=== PATIENT | male | born 1930 | race African-American/Black ===

== ENCOUNTER 2017-05-14 12:16 | Inpatient (IN) | payer MEDICARE ==
[2017-05-14] MEDS ORDERED: Furosemide 40 MG/4 ML VIAL ONE (13:19)
[2017-05-14 14:01] LABS: Band 2 % (5-11); Hematocrit 50.7 % (42.0-52.0); Macrocytosis SLIGHT = 6-15 cells (100X) (0-5/hpf); Mean Platelet Volume 10.6 fL (7.4-10.4); Neutrophil 83 % (42-75); Red Blood Cell (RBC) Count 4.73 mill/uL (4.70-6.10); Target Cells SLIGHT = 2-5 cells (100X) (0-1/hpf); White Blood Cell (WBC) Count 3.8 thou/uL (4.8-10.8)
[2017-05-14 14:10] LABS: ALT (SGPT) 28 U/L (8-55); AST (SGOT) 53 U/L (5-34); Alkaline Phosphatase 65 U/L (40-150); Anion Gap 17 mmol/L (10-20); BUN (Urea Nitrogen) 76 mg/dL (8.4-25.7); Bilirubin, Total 1.7 mg/dL (0.2-1.2); Calc. Creatinine Clearance 0 mL/min (70-130); Calcium 9.9 mg/dL (7.8-10.44); Carbon Dioxide 23 mmol/L (23-31); Chloride 108 mmol/L (98-107); Estimated GFR-MDRD 30; Protein, Total 6.7 g/dL (5.8-8.1)
[2017-05-14 14:13] LABS: Troponin I 0.074 ng/mL (< 0.028)
--- NOTE | 2017-05-14 14:51 | RAD ---
AP VIEW CHEST: HISTORY: Shortness of breath. FINDINGS: AP view chest was obtained on 05/14/17. Comparison is made to previous exam from . AP view chest demonstrates a dual-lead intracardiac pacing device. Bilateral pleural effusions seen . Cardiomegaly is noted. Areas of patchy density are seen in both lung bases compatible with bibas ilar pneumonia or atelectasis. IMPRESSION: 1. Cardiomegaly and bilateral pleural effusions. 2. Patchy bibasilar atelectasis or pneumonia may also be present. POS: [facility]
[2017-05-14 17:10] LABS: Troponin I 0.076 ng/mL (< 0.028)
--- NOTE | 2017-05-14 17:10 | HP ---
PRIMARY CARE PHYSICIAN: Dr. Salvador. REASON FOR ADMISSION: CHF exacerbation. HISTORY OF PRESENT ILLNESS: An 86-year-old -British male with a history of chronic systolic heart failure as well as chronic kidney disease, who presented to emergency room for evaluation of increasing shortness of breath. This patient has most recent echocardiography in 12/2016, which chuck wed EF 15-20%. At the same time, the patient has diffuse hypokinesis, moderately elevated pulmonary artery pressure, moderate pulmonary regurgitation, moderate aortic and tricuspid regurgitation, and severe mitral regurgitation. This patient has several admissions for CHF exacerbation in [facility] with the most recent admission in 02/2017. This patient came to the ER because for the last 2-3 days, he has increasing shortness of breath with increasing bilateral lower extremity edema. Xiomara nt reports that he was having difficulty sleeping because of shortness of breath. He does report or thopnea. He denies any PND. He denies any syncope. He denies any fever or chills. He denies any chest pain. He denies any nausea, vomiting, diaphoresis. He denies any melena or hematochezia. He denies any UTI symptoms. The patient is not able to tell me about weight gain, but he does report that he is feeling more congested. He presented to emergency room, his blood pressure was relatively on lower side. He was saturating 95% on 2 liter oxygen. Routine blood tests in the emergency room showed pulmonary vascular congestion, bilateral pleural ef fusions and chest x-ray. Patient denies any fever or chills. He denies any cough. He denies any s ick exposure. He denies any recent travel. In the emergency room, he had elevated troponin, but looking at his old record. Patient does have c hronically elevated troponin and his BNP was elevated, but looking at his old record, he has chronic ally elevated troponin but at this time more than before. PAST MEDICAL HISTORY: Chronic systolic heart failure with EF 15% to 20% with moderate aortic and tr icuspid regurgitation, and severe mitral regurgitation, chronic kidney disease stage 4, dyslipidemia , hypertension, gastroesophageal reflux disease, history of sick sinus syndrome, degenerative joint disease, medication noncompliance. PAST SURGICAL HISTORY: AICD/pacemaker placement, cardiac catheterization and cholecystectomy. PAST PSYCHIATRIC HISTORY: Reviewed and negative. ALLERGIES: No known drug allergies. SOCIAL HISTORY: Patient currently lives at home with his sister. He ambulates with the help of can e. He denies any tobacco, alcohol or illicit drug abuse. FAMILY HISTORY: No strong family history of premature coronary artery disease, stroke or cancer. REVIEW OF SYSTEMS: The following complete review of systems was negative, unless otherwise mentione d in the HPI or below: CONSTITUTIONAL: Weight loss or gain, ability to conduct usual activities. SKIN: Rash, itching. EYES: Double vision, pain. ENT/MOUTH: Nose bleeding, neck stiffness, pain, tenderness. CARDIOVASCULAR: Palpitations, dyspnea on exertion, orthopnea. RESPIRATORY: Shortness of breath, wheezing, cough, hemoptysis, fever or night sweats. GASTROINTESTINAL: Poor appetite, abdominal pain, heartburn, nausea, vomiting, constipation, or diar tamara. GENITOURINARY: Urgency, frequency, dysuria, nocturia. MUSCULOSKELETAL: Pain, swelling. NEUROLOGIC/PSYCHIATRIC: Anxiety, depression. ALLERGY/IMMUNOLOGIC: Skin rash, bleeding tendency. Please see my HPI for pertinent positives and negative. All other review of systems reviewed and ne gative except as mentioned in the HPI. CURRENT HOME MEDICATIONS: Coreg 6.25 mg twice daily, hydralazine 25 mg t.i.d., pravastatin 20 mg p. o. at bedtime, isosorbide mononitrate 20 mg 3 times daily, Antivert 25 mg as needed, aspirin 81 mg p .o. daily, Lasix 40 mg p.o. daily. ALLERGIES: No known drug allergies. EMERGENCY ROOM COURSE: Patient is given Lasix 40 mg IV. PHYSICAL EXAMINATION: VITAL SIGNS: Currently, blood pressure 116/83, pulse 66, respiratory rate 25, temperature 98.4 and saturation 95% on room air. Weight 68 kilograms. GENERAL: Patient is currently alert, awake, chronically ill, no obvious acute distress. HEAD: Normocephalic, atraumatic. Eyes: Pupils round, reactive to light. Extraocular muscles inta ct. ENT: Oropharynx within normal limits. Moist mucous membranes. No oral lesions. No pharyngeal renu thema, no exudate. NECK: Supple. Range of motion is normal. No meningeal signs of irritation. LUNGS: Bibasilar rales noted. Reduced air entry. Few end expiratory wheezing heard. CARDIAC: S1, S2 regular. No murmur elicited, no gallop, no rub. ABDOMEN: Soft, bowel sounds present, nontender, nondistended. No organomegaly, no mass, no suprapu bic tenderness. BACK: Unremarkable, no CVA tenderness. EXTREMITIES: Upper extremity: Passive movement of all joints are normal. Lower extremity: Bilate ral pitting edema noted. Good peripheral pulsation. SKIN: No skin rash. HEMATOLOGICAL: No lymphadenopathy. NEUROLOGIC: Nonfocal examination. Speech normal. PSYCHIATRIC: Normal affect. HEMATOLOGIC: No lymphadenopathy. SIGNIFICANT LABS: 1. CBC: WBC 3.8, hemoglobin 15.9, platelets 110 with a left shift and bandemia. 2. BMP: Sodium 143, potassium 4.5, chloride 108, carbon dioxide 23, anion gap 17, BUN 76, creatini ne 2.49, glucose 109, calcium 9.9. 3. LFT: AST 53, ALT 28, alkaline phosphatase 65, albumin 3.7. CK 275, CK-MB 4.6, troponin I 0.074 . BNP 6163. EKG showing first degree AV block, left axis deviation, nonspecific intraventricular block. ASSESSMENT AND PLAN/IMPRESSION: 1. Dyspnea, likely due to underlying congestive heart failure exacerbation. Possibility of pneumon ia cannot be entirely excluded. 2. Acute on chronic systolic congestive heart failure exacerbation. This patient has significantly elevated BNP. He has bilateral lower extremity edema. He does give a history of orthopnea. He do es have bilateral pleural effusion. He does have few basilar rales. At this point, patient will be given Lasix 40 mg IV b.i.d. We will monitor daily labs weight, input and output chart. We will ch tomasz magnesium and uric acid tomorrow. We will monitor on telemetry floor. 3. Suspected bibasilar pneumonia. This patient has patchy infiltrate on x-ray at base. This patie nt also has leukopenia and bandemia. At this point, I will treat him with empiric antibiotic therap y with Rocephin 1 gram q.24 hours and Levaquin 250 mg IV daily. 4. Chronic kidney disease stage 3-4. Patient's renal function will be closely monitored while in h ospital. 5. Elevated troponin. This patient has chronically elevated troponin, but we will do total 2 sets of cardiac enzymes to see the trend of troponin. 6. Macrocytosis. We will start folic acid 1 mg p.o. daily, vitamin B12 1000 mcg p.o. daily and ash ck B12, folate tomorrow morning. 7. Leukopenia, macrocytosis and thrombocytopenia. We will check B12 and folate level tomorrow. 8. Chronic systolic heart failure currently with exacerbation. As mentioned above, we will continu e with Lasix as tolerated. We will start Coreg and hydralazine. 9. Dyslipidemia. Continue pravastatin 20 mg p.o. at bedtime. 10. Gastroesophageal reflux disease. We will continue with Protonix 40 mg p.o. daily. 11. Severe valvular heart disease including severe mitral regurgitation, moderate aortic regurgitat ion and triscuspid regurgitation, likely due to underlying cardiomyopathy. 12. Deep venous thrombosis prophylaxis. We will continue with Lovenox 30 mg subcutaneously daily, but at the same time, we will monitor platelet count. If platelet count drops, then we will discont inue Lovenox therapy. 13. Gastrointestinal prophylaxis, Protonix 40 mg p.o. daily. 14. CODE STATUS: I spoke with the patient who can make his own decisions. Today, patient expresse d his wish to be a DNR. He does not want to be resuscitated in case of cardiopulmonary arrest, this patient is able to make his own decision and he made DNR decision.
[2017-05-14] MEDS ORDERED: Ondansetron ODT 4 MG TAB PO PRN (17:31)
[2017-05-14] MEDS ORDERED: Milk Of Magnesia 30 ML UDCUP PO PRN (17:31)
[2017-05-14] MEDS ORDERED: Senokot 8.6 MG TAB PO PRN (17:31)
[2017-05-14] MEDS ORDERED: Mag-Al 1200 mg/1200 mg/30 ML UDCUP PO PRN (17:31)
[2017-05-14] MEDS ORDERED: Loratadine 10 MG TAB PO PRN (17:31)
[2017-05-14] MEDS ORDERED: Zolpidem Tartrate 5 MG TAB PO PRN (17:31)
[2017-05-14] MEDS ORDERED: Acetaminophen 325 MG TAB PO PRN (17:31)
[2017-05-14] MEDS ORDERED: Chloraseptic Spray 180 ml Bottle PO PRN (17:31)
[2017-05-14] MEDS ORDERED: Loperamide HCl 2 MG CAP PO PRN (17:31)
[2017-05-14] MEDS ORDERED: Artificial Tears 18 DROP/0.9 ML EA EYE PRN (17:31)
[2017-05-14] MEDS ORDERED: Eucerin (Mineral Oil/Petrolatum,White) 30 gm Jar TOP PRN (17:31)
[2017-05-14] MEDS ORDERED: Sodium Chloride 0.65% Nasal 44 ML BOT EA NARE PRN (17:31)
[2017-05-14] MEDS ORDERED: HYDROcodone/Acetaminophen 5/325 mg Tablet PO PRN (17:31)
[2017-05-14] MEDS ORDERED: cefTRIAXone\\ROCEPHIN 1 GM VIAL IVPB SCH (17:31)
[2017-05-14] MEDS ORDERED: Nitroglycerin 0.4 MG TAB (25 Tab Bottle) SL PRN (17:31)
[2017-05-14] MEDS ORDERED: Ondansetron HCl/PF 4 MG/2 ML Vial IVP PRN (17:31)
[2017-05-14] MEDS ORDERED: Meclizine HCl 12.5 MG TAB PO PRN (17:31)
[2017-05-14] MEDS ORDERED: Diabetic Tussin 200 MG/10 ML UDCUP PO PRN (17:31)
[2017-05-14 20:26] LABS: Troponin I 0.068 ng/mL (< 0.028)
[2017-05-14] MEDS: cefTRIAXone\\ROCEPHIN 1 GM in Sodium Chloride 0.9% 100 ML IVPB SCH (20:27)
[2017-05-14] MEDS: Simvastatin 5 MG TAB PO SCH (20:27)
[2017-05-14] MEDS: Carvedilol 6.25 MG TAB PO SCH (20:27)
[2017-05-14] MEDS: Levofloxacin/D5W 250 MG in Premix Bag 1 BAG IVPB SCH (23:35)
[2017-05-15] MEDS: Furosemide 40 MG/4 ML VIAL SLOW IVP SCH ×2 (05:26→14:41)
[2017-05-15 06:17] LABS: Anion Gap 24 mmol/L (10-20); BUN (Urea Nitrogen) 83 mg/dL (8.4-25.7); BUN/Creatinine Ratio 30.86; Calc. Creatinine Clearance 18 mL/min (70-130); Calcium 9.6 mg/dL (7.8-10.44); Carbon Dioxide 18 mmol/L (23-31); Chloride 107 mmol/L (98-107); Estimated GFR-MDRD 27; Magnesium 2.2 mg/dL (1.6-2.6); Uric Acid 11.2 mg/dL (3.5-7.2)
[2017-05-15 06:19] LABS: Troponin I 0.065 ng/mL (< 0.028)
[2017-05-15 07:08] LABS: Hematocrit 51.2 % (42.0-52.0); Macrocytosis SLIGHT = 6-15 cells (100X) (0-5/hpf); Mean Platelet Volume 11.4 fL (7.4-10.4); Neutrophil 79 % (42-75); Red Blood Cell (RBC) Count 4.81 mill/uL (4.70-6.10); White Blood Cell (WBC) Count 5.1 thou/uL (4.8-10.8)
[2017-05-15] MEDS: Enoxaparin Sodium 30 MG/0.3 ML SYRINGE SC SCH (09:18)
[2017-05-15] MEDS: Carvedilol 6.25 MG TAB PO SCH ×2 (09:23→21:18)
[2017-05-15] MEDS: Cyanocobalamin (Vitamin B-12) 1,000 MCG TAB PO SCH (09:23)
[2017-05-15] MEDS: Folic Acid 1 MG TAB PO SCH (09:23)
--- NOTE | 2017-05-15 11:50 | PDOC.PN ---
- Subjective Encounter Start Date: 05/15/17 Encounter Start Time: 11:47 Subjective: feels "fair." denies any chest pain.no SOB.swelling improved - Objective Resuscitation Status: Resuscitation Status DNR:Do Not Resuscitate MAR Reviewed: Yes Vital Signs & Weight: Vital Signs (12 hours) Temp Pulse Pulse Pulse Resp BP BP 05/15/17 11:22 59 L 20 05/15/17 09:23 108/62 05/15/17 09:08 63 65 115/66 05/15/17 07:17 96.8 F L 62 18 05/15/17 04:00 98.2 F 64 16 05/14/17 23:59 97.4 F L 64 16 BP BP Pulse Ox Pulse Ox Pulse Ox 05/15/17 11:22 109/70 97 05/15/17 09:23 05/15/17 09:08 108/62 98 97 05/15/17 07:17 108/62 97 05/15/17 04:00 116/75 96 05/14/17 23:59 102/67 100 Weight Weight 147 lb 5 oz I&O: 05/14/17 05/15/17 05/16/17 06:59 06:59 06:59 Intake Total 460 Output Total 100 Balance 360 Result Diagrams: 05/15/17 04:41 05/15/17 04:41 Additional Labs: Laboratory Tests 05/14/17 05/14/17 05/14/17 13:32 13:32 13:32 Uric Acid Phosphorus Magnesium Total Bilirubin 1.7 H AST 53 H Troponin I 0.074 H B-Natriuretic Peptide 6163.2 H Vitamin B12 Folate 05/14/17 05/14/17 05/15/17 16:31 19:54 04:41 Uric Acid 11.2 H Phosphorus 5.0 H Magnesium 2.2 Total Bilirubin AST Troponin I 0.076 H 0.068 H B-Natriuretic Peptide Vitamin B12 Folate 05/15/17 05/15/17 04:41 04:41 Uric Acid Phosphorus Magnesium Total Bilirubin AST Troponin I 0.065 H B-Natriuretic Peptide Vitamin B12 1827 H Folate 13.20 Phys Exam - Physical Examination Constitutional: NAD HEENT: PERRLA, moist MMs, sclera anicteric, oral pharynx no lesions Neck: no nodes, no JVD, supple, full ROM decreased at bases Cardiovascular: RRR, no significant murmur Gastrointestinal: soft, non-tender, no distention, positive bowel sounds Musculoskeletal: pulses present, edema present (mild) Neurological: non-focal, normal sensation, moves all 4 limbs Psychiatric: normal affect, A&O x 3 Skin: no rash Dx/Plan (1) Acute on chronic systolic heart failure Code(s): I50.23 - ACUTE ON CHRONIC SYSTOLIC (CONGESTIVE) HEART FAILURE Status : Acute (2) PNA (pneumonia) Code(s): J18.9 - PNEUMONIA, UNSPECIFIED ORGANISM Status: Acute (3) Shortness of breath Code(s): R06.02 - SHORTNESS OF BREATH Status: Acute (4) CKD (chronic kidney disease) stage 3, GFR 30-59 ml/min Code(s): N18.3 - CHRONIC KIDNEY DISEASE, STAGE 3 (MODERATE) Status: Chronic (5) Coronary artery disease Code(s): I25.10 - ATHSCL HEART DISEASE OF [place] CORONARY ARTERY W/O ANG PCTRS Status: Chronic (6) Dyslipidemia Code(s): E78.5 - HYPERLIPIDEMIA, UNSPECIFIED Status: Chronic (7) Elevated liver enzymes Code(s): R74.8 - ABNORMAL LEVELS OF OTHER SERUM ENZYMES Status: Chronic (8) GERD (gastroesophageal reflux disease) Code(s): K21.9 - GASTRO-ESOPHAGEAL REFLUX DISEASE WITHOUT ESOPHAGITIS Status: Chronic Qualifiers: (9) Thrombocytopenia Code(s): D69.6 - THROMBOCYTOPENIA, UNSPECIFIED Status: Chronic (10) Nonischemic cardiomyopathy Code(s): I42.8 - OTHER CARDIOMYOPATHIES Status: Chronic Comment: Pt refuses to wear Life vest and did not follow up with cardiology last discharge (11) H/O sick sinus syndrome Code(s): Z86.79 - PERSONAL HISTORY OF OTHER DISEASES OF THE CIRCULATORY SYSTEM Status: Chronic (12) Pacemaker Code(s): Z95.0 - PRESENCE OF CARDIAC PACEMAKER Status: Chronic - Plan continue antibiotics, PT/OT, psychosocial rehabilitation counselor, respiratory therapy, incentive spirometry, out of bed/ambulate, DVT proph w/SCDs Cont diuresis .strict I/os.monito rrenal Function closely.avoid nephrotoxin -: Pt agreeable to have AICD after long discussion.will consult cardiology -: CL-I on hold d/t [place] on CKA.cont ASA,BB,statin. -: follow final Cx results. hemodynamically stable. -: check daily labs * . Review of Systems - Review of Systems Constitutional: Malaise. negative: Fever, Chills, Sweats, Weakness, Other Respiratory: negative: Cough, Dry, Shortness of Breath, Hemoptysis, SOB with Excertion, Pleuritic Pain, Sputum, Wheezing Cardiovascular: negative: Chest Pain, Palpitations, Orthopnea, Paroxysmal Noc. Dyspnea, Edema, Light Headedness, Other Gastrointestinal: negative: Nausea, Vomiting, Abdominal Pain, Diarrhea, Constipation, Melena, Hematochezia, Other Genitourinary: negative: Dysuria, Frequency, Incontinence, Hematuria, Retention , Other Musculoskeletal: negative: Neck Pain, Shoulder Pain, Arm Pain, Back Pain, Hand Pain, Leg Pain, Foot Pain, Other Neurological: negative: Weakness, Numbness, Incoordination, Change in Speech, Confusion, Seizures, Other - Medications/Allergies Allergies/Adverse Reactions: Allergies Allergy/AdvReac Type Severity Reaction Status Date / Time No Known Allergies Allergy Verified 05/14/17 17:42 Medications: Current Medications Acetaminophen (Tylenol) 650 mg PO Q4H PRN PRN Reason: Headache/Fever or Pain Hydrocodone Bitart/Acetaminophen ([place] 5/325) 1 tab PO Q4H PRN PRN Reason: Moderate Pain (4-6) Al Hydroxide/Mg Hydroxide (Maalox) 30 ml PO Q6H PRN PRN Reason: Heartburn or Indigestion Albuterol/Ipratropium (Duoneb) 3 ml NEB D2EE-NH PRN PRN Reason: SOB &/or Wheezing Artificial Tears (Tears Naturale) 0 drop EA EYE PRN PRN PRN Reason: Dry Eyes Aspirin (Aspirin Chewable) 81 mg PO DAILY [facility] Last Admin: 05/15/17 09:24 Dose: 81 mg Carvedilol (Coreg) 6.25 mg PO BID [facility] Last Admin: 05/15/17 09:23 Dose: Not Given Cyanocobalamin (Vitamin B-12) 1,000 mcg PO DAILY [facility] Last Admin: 05/15/17 09:23 Dose: 1,000 mcg Enoxaparin Sodium (Lovenox) 30 mg SC 0900 [facility] Last Admin: 05/15/17 09:18 Dose: Not Given Folic Acid (Folvite) 1 mg PO DAILY [facility] Last Admin: 05/15/17 09:23 Dose: 1 mg Furosemide (Lasix) 40 mg SLOW IVP 0600,1400 [facility] Last Admin: 05/15/17 05:26 Dose: 40 mg Guaifenesin (Robitussin Sf) 200 mg PO Q4H PRN PRN Reason: Cough Hydralazine HCl (Apresoline) 10 mg SLOW IVP Q4H PRN PRN Reason: Systolic BP > 180 Levofloxacin 250 mg/ Device 50 mls @ 100 mls/hr IVPB 2100 [facility] Last Admin: 05/14/17 23:35 Dose: 50 mls Ceftriaxone Sodium 1 gm/ (Sodium Chloride) 100 mls @ 200 mls/hr IVPB 2000 [facility] Last Admin: 05/14/17 20:27 Dose: 100 mls Dobutamine HCl/Dextrose (Dobutamine 500 Mg/250 Ml) 250 mls @ 0 mls/hr IVPB INF [facility]; As Directed PRN Reason: Protocol Loperamide HCl (Imodium) 2 mg PO PRN PRN PRN Reason: Diarrhea/Loose Stools Loratadine (Claritin) 10 mg PO DAILYPRN PRN PRN Reason: Sinus Symptoms Magnesium Hydroxide (Milk Of Magnesium) 30 ml PO DAILYPRN PRN PRN Reason: Constipation Meclizine HCl (Antivert) 12.5 mg PO BIDPRN PRN PRN Reason: Dizziness Mineral Oil/White Petrolatum (Eucerin Cream) 0 gm TOP BIDPRN PRN PRN Reason: Dry Skin Nitroglycerin (Nitrostat) 0.4 mg SL Q5MIN PRN PRN Reason: Chest Pain Ondansetron HCl (Zofran Odt) 4 mg PO Q6H PRN PRN Reason: Nausea/Vomiting Ondansetron HCl (Zofran) 4 mg IVP Q6H PRN PRN Reason: Nausea/Vomiting Phenol (Chloraseptic [place] 180 Ml Bot) 0 ml PO PRN PRN PRN Reason: Sore Throat Senna (Senokot) 2 tab PO HSPRN PRN PRN Reason: Constipation Simvastatin (Zocor) 10 mg PO HS [facility] Last Admin: 05/14/17 20:27 Dose: 10 mg Sodium Chloride ([place] Nasal [place] 0.65%) 0 ml EA NARE QIDPRN PRN PRN Reason: Nasal Congestion Zolpidem Tartrate (Ambien) 5 mg PO HSPRN PRN PRN Reason: Insomnia
[2017-05-15 12:07] LABS: Bilirubin Negative (Negative); Blood, Urine Negative (Negative); Glucose, Urine (Dipstick) Negative (Negative); Ketone, Urine Negative (Negative); Nitrite Negative (Negative); Protein, Urine (Dipstick) 30 mg/dL (Neg-Trace)
[2017-05-15 12:09] LABS: Bacteria/HPF None Seen HPF (None Seen); Squamous Epithelial 0-3 HPF (0-3)
--- NOTE | 2017-05-15 12:10 | CON ---
DATE OF CONSULTATION: 05/15/2017 CARDIOLOGY CONSULTATION PRIMARY IDENTIFICATION AND RECORDS COMMANDER: Francisco Tavarez M.D. HISTORY OF PRESENT ILLNESS: Mr. Mcdonnell is a pleasant 86-year-old -[place] gentleman who come s to the hospital for increased shortness of breath. He has a known history of nonischemic cardiomy opathy with an EF of 15%-20%. He had sick sinus syndrome and had a dual chamber pacemaker placed so metime ago in [place]. He comes in for increased shortness of breath in the last 2 or 3 days, so he was admitted for heart failure exacerbation. He has been given IV Lasix so far and his breathing h as improved and still not back to normal though. The hospitalist spoke with him about possibility o f an AICD and he wanted to talk to the vice president quality about this, so I am being consulted for this. PAST MEDICAL HISTORY: 1. Nonischemic cardiomyopathy with an EF of 15%-20%. 2. Moderate aortic insufficiency. 3. Severe mitral regurgitation. 4. Chronic kidney disease stage 4. 5. Hyperlipidemia. 6. Hypertension. 7. GERD. 7. Sick sinus syndrome, status post pacemaker placement. 8. DJD. 9. Noncompliance. PAST SURGICAL HISTORY: 1. Dual-chamber pacemaker placement. 2. Cardiac catheterization showed mild disease. 3. Cholecystectomy. SOCIAL HISTORY: Lives with his sister. No alcohol, tobacco or drugs. ALLERGIES: No known drug allergies. FAMILY HISTORY: Noncontributory. OUTPATIENT MEDICATIONS: Include, 1. Pravachol 20 mg at bedtime. 2. Aspirin 81 a day. 3. Carvedilol 6.25 b.i.d. 4. Imdur 20 mg b.i.d. 5. Furosemide 40 mg a day. 6. Hydralazine 25 mg p.o. t.i.d. 7. Meclizine p.r.n. REVIEW OF SYSTEMS: A 12-point review of systems was done, it is all negative unless stated in the h istory of present illness. PHYSICAL EXAMINATION: VITAL SIGNS: Temperature 98.2, pulse 64, respiratory rate 16, satting 96% on 2 liters, blood pressu re 116/75. GENERAL: Awake, alert, oriented x3, in no distress. HEENT: Normocephalic, atraumatic. NECK: Supple. LUNGS: Have coarse breath sounds anteriorly with crackles at the bilateral bases. CARDIOVASCULAR: S1, S2, no S3, S4. There is a grade 2/6 systolic murmur in the right upper sternal border and holosystolic murmur at the apex. ABDOMEN: Soft, positive bowel sounds. EXTREMITIES: 1+ edema. SKIN: Warm and dry. LABORATORY DATA AND IMAGIN. Laboratory work was reviewed. White count of 3.8, hemoglobin of 15.9, hematocrit of 50, platele t count of 110. Chemistries were reviewed. Creatinine of 2.49 up to 2.69, GFR of 27. Troponin is 0.07, 0.06, 0.06. BNP of 6163, total bilirubin of 1.7, AST of 53, albumin of 3.5. 2. EKG is reviewed. 3. Chest x-ray was reviewed and shows cardiomegaly with bilateral pleural effusions, bibasilar atel ectasis or pneumonia versus pulmonary edema. ASSESSMENT AND PLAN: 1. Acute on chronic systolic heart failure. 2. Severe nonischemic cardiomyopathy, ejection fraction of 15%-20%. 3. Presence of dual chamber pacemaker. 4. Mild coronary artery disease. 5. Medication noncompliance. PLAN: At this point, he would be a candidate for an AICD given his chronic LV dysfunction. I spoke with him about this. He states that he would not be interested in having to rescind his DNR for th e procedure. I told him that it is a possibility that he may need to be resuscitated for if anythin g goes wrong and he is not interested in this. He states that he probably will not be amenable to h aving an AICD given this fact. We will recommend he continue to do IV Lasix if creatinine continues to go up tomorrow. We will start dobutamine drip to improve his inotropic and hopefully improve re nal perfusion. Thank you for letting us to participate in the care of your patient. We will follow.
[2017-05-15] MEDS: DOBUTamine 500 mg/250 ml 250 ML IVPB SCH (12:12)
[2017-05-15 12:19] LABS: RBC/HPF 0-3 HPF (0-3)
[2017-05-15] MEDS: Simvastatin 5 MG TAB PO SCH ×2 (21:18→21:22)
[2017-05-15] MEDS: cefTRIAXone\\ROCEPHIN 1 GM in Sodium Chloride 0.9% 100 ML IVPB SCH (21:45)
[2017-05-15] MEDS: Levofloxacin/D5W 250 MG in Premix Bag 1 BAG IVPB SCH (21:46)
[2017-05-16] MEDS: Furosemide 40 MG/4 ML VIAL SLOW IVP SCH ×2 (05:08→13:32)
[2017-05-16 05:41] LABS: Anion Gap 22 mmol/L (10-20); BUN (Urea Nitrogen) 86 mg/dL (8.4-25.7); Calc. Creatinine Clearance 17 mL/min (70-130); Calcium 9.5 mg/dL (7.8-10.44); Carbon Dioxide 20 mmol/L (23-31); Chloride 106 mmol/L (98-107); Estimated GFR-MDRD 25
[2017-05-16] MEDS: DOBUTamine 500 mg/250 ml 250 ML IVPB SCH (09:20)
[2017-05-16] MEDS: Carvedilol 6.25 MG TAB PO SCH ×2 (09:21→20:44)
[2017-05-16] MEDS: Folic Acid 1 MG TAB PO SCH (09:21)
[2017-05-16] MEDS: Doxycycline 100 MG CAP PO SCH ×2 (09:22→20:45)
[2017-05-16] MEDS: Enoxaparin Sodium 30 MG/0.3 ML SYRINGE SC SCH (10:07)
[2017-05-16] MEDS: Cyanocobalamin (Vitamin B-12) 1,000 MCG TAB PO SCH (10:08)
--- NOTE | 2017-05-16 12:41 | PDOC.PN ---
- Subjective Encounter Start Date: 05/16/17 Encounter Start Time: 07:20 Pt seen for followup re: acute on chronic systolic heart failure. Dyspnea better. No chest pain, fever or chills. Occ cough. - Objective Resuscitation Status: Resuscitation Status DNR:Do Not Resuscitate MAR Reviewed: Yes Vital Signs & Weight: Vital Signs (12 hours) Temp Pulse Resp BP BP Pulse Ox 05/16/17 09:21 111/79 05/16/17 06:57 96.8 F L 59 L 20 111/79 95 05/16/17 04:00 60 22 H 113/74 94 L Weight Weight 146 lb 9 oz I&O: 05/15/17 05/16/17 05/17/17 06:59 06:59 06:59 Intake Total 460 710 Output Total 100 395 Balance 360 315 Result Diagrams: 05/15/17 04:41 05/16/17 05:03 EKG Reviewed by me: Yes (Tele; NSR) Phys Exam - Physical Examination Constitutional: NAD HEENT: moist MMs, oral pharynx no lesions Neck: supple Respiratory: no wheezing, no rhonchi Bibasal crackles Cardiovascular: RRR, no rub Gastrointestinal: soft, positive bowel sounds Musculoskeletal: pulses present, edema present Neurological: moves all 4 limbs Psychiatric: normal affect Deviation from normal: Oriented to person and place, not to time Skin: no rash, cap refill <2 seconds Dx/Plan (1) Acute on chronic systolic heart failure Code(s): I50.23 - ACUTE ON CHRONIC SYSTOLIC (CONGESTIVE) HEART FAILURE Status : Acute (2) CAP (community acquired pneumonia) Code(s): J18.9 - PNEUMONIA, UNSPECIFIED ORGANISM Status: Acute (3) CKD (chronic kidney disease) stage 3, GFR 30-59 ml/min Code(s): N18.3 - CHRONIC KIDNEY DISEASE, STAGE 3 (MODERATE) Status: Chronic (4) Chronic anemia Code(s): D64.9 - ANEMIA, UNSPECIFIED Status: Chronic (5) Coronary artery disease Code(s): I25.10 - ATHSCL HEART DISEASE OF [place] CORONARY ARTERY W/O ANG PCTRS Status: Chronic (6) Dyslipidemia Code(s): E78.5 - HYPERLIPIDEMIA, UNSPECIFIED Status: Chronic (7) GERD (gastroesophageal reflux disease) Code(s): K21.9 - GASTRO-ESOPHAGEAL REFLUX DISEASE WITHOUT ESOPHAGITIS Status: Chronic Qualifiers: - Plan PT/OT, out of bed/ambulate, DVT proph w/lovenox * . Continue diuretics. Continue to monitor creatinine (slightly worse today). Continue fluoroquinolone. Mobilize pt. Review of Systems - Review of Systems Constitutional: negative: Fever, Chills, Sweats, Weakness, Malaise Respiratory: Cough, Shortness of Breath. negative: Dry, Hemoptysis, SOB with Excertion, Pleuritic Pain, Sputum, Wheezing Cardiovascular: negative: Chest Pain, Palpitations, Orthopnea, Paroxysmal Noc. Dyspnea, Edema, Light Headedness, Other Gastrointestinal: negative: Nausea, Vomiting, Abdominal Pain, Diarrhea, Constipation, Melena, Hematochezia Skin: negative: Rash, Lesions - Medications/Allergies Allergies/Adverse Reactions: Allergies Allergy/AdvReac Type Severity Reaction Status Date / Time No Known Allergies Allergy Verified 05/14/17 17:42 Medications: Current Medications Acetaminophen (Tylenol) 650 mg PO Q4H PRN PRN Reason: Headache/Fever or Pain Hydrocodone Bitart/Acetaminophen ([place] 5/325) 1 tab PO Q4H PRN PRN Reason: Moderate Pain (4-6) Al Hydroxide/Mg Hydroxide (Maalox) 30 ml PO Q6H PRN PRN Reason: Heartburn or Indigestion Albuterol/Ipratropium (Duoneb) 3 ml NEB [id number] PRN PRN Reason: SOB &/or Wheezing Artificial Tears (Tears Naturale) 0 drop EA EYE PRN PRN PRN Reason: Dry Eyes Aspirin (Aspirin Chewable) 81 mg PO DAILY [facility] Last Admin: 05/16/17 09:21 Dose: 81 mg Carvedilol (Coreg) 6.25 mg PO BID [facility] Last Admin: 05/16/17 09:21 Dose: Not Given Cyanocobalamin (Vitamin B-12) 1,000 mcg PO DAILY [facility] Last Admin: 05/16/17 10:08 Dose: Not Given Doxycycline Hyclate (Vibramycin) 100 mg PO BID [facility] Last Admin: 05/16/17 09:22 Dose: 100 mg Enoxaparin Sodium (Lovenox) 30 mg SC 0900 [facility] Last Admin: 05/16/17 10:07 Dose: Not Given Folic Acid (Folvite) 1 mg PO DAILY [facility] Last Admin: 05/16/17 09:21 Dose: 1 mg Furosemide (Lasix) 40 mg SLOW IVP 0600,1400 [facility] Last Admin: 05/16/17 05:08 Dose: 40 mg Guaifenesin (Robitussin Sf) 200 mg PO Q4H PRN PRN Reason: Cough Hydralazine HCl (Apresoline) 10 mg SLOW IVP Q4H PRN PRN Reason: Systolic BP > 180 Dobutamine HCl/Dextrose (Dobutamine 500 Mg/250 Ml) 250 mls @ 0 mls/hr IVPB INF [facility]; As Directed PRN Reason: Protocol Last Admin: 05/16/17 09:20 Dose: 250 mls Levofloxacin (Levaquin) 250 mg PO 0600 [facility] Last Admin: 05/16/17 05:08 Dose: 250 mg Loperamide HCl (Imodium) 2 mg PO PRN PRN PRN Reason: Diarrhea/Loose Stools Loratadine (Claritin) 10 mg PO DAILYPRN PRN PRN Reason: Sinus Symptoms Magnesium Hydroxide (Milk Of Magnesium) 30 ml PO DAILYPRN PRN PRN Reason: Constipation Meclizine HCl (Antivert) 12.5 mg PO BIDPRN PRN PRN Reason: Dizziness Mineral Oil/White Petrolatum (Eucerin Cream) 0 gm TOP BIDPRN PRN PRN Reason: Dry Skin Nitroglycerin (Nitrostat) 0.4 mg SL Q5MIN PRN PRN Reason: Chest Pain Ondansetron HCl (Zofran Odt) 4 mg PO Q6H PRN PRN Reason: Nausea/Vomiting Ondansetron HCl (Zofran) 4 mg IVP Q6H PRN PRN Reason: Nausea/Vomiting Phenol (Chloraseptic [place] 180 Ml Bot) 0 ml PO PRN PRN PRN Reason: Sore Throat Senna (Senokot) 2 tab PO HSPRN PRN PRN Reason: Constipation Simvastatin (Zocor) 10 mg PO HS [facility] Last Admin: 05/15/17 21:22 Dose: Not Given Sodium Chloride ([place] Nasal [place] 0.65%) 0 ml EA NARE QIDPRN PRN PRN Reason: Nasal Congestion Sodium Chloride (Flush - Normal Saline) 10 ml IVF Q12HR [facility] Sodium Chloride (Flush - Normal Saline) 10 ml IVF PRN PRN PRN Reason: Saline Flush Zolpidem Tartrate (Ambien) 5 mg PO HSPRN PRN PRN Reason: Insomnia
--- NOTE | 2017-05-16 15:19 | SPC ---
ULTRASOUND GUIDED LEFT UPPER EXTREMITY PICC LINE PLACEMENT DATE: 05/16/2017 HISTORY: The patient needs long-term IV antibiotics. FLUOROSCOPY: Total fluoroscopy time is 1.9 minutes for a total dose of 9325 mGy2cm. TECHNIQUE: After informed consent was obtained, the patient was placed on the angiography table in the supine p osition. The left upper extremity was meticulously prepped and draped in the usual sterile fashion. An appropriate access site was determined with ultrasound guidance. Skin and subcutaneous tissues were infiltrated with buffered 1% lidocaine for local anesthesia at th e intended puncture site. Using concurrent real-time ultrasound guidance, the left brachial vein wa s accessed utilizing micropuncture technique and concurrent real-time ultrasound guidance. A 5-Fren ch peel-away sheath was placed. The catheter was measured and cut to the appropriate length. Catheter was placed over the guidewire with the tip position overlying the cavoatrial junction. Guidewire and peel-away sheath were remov ed. Each port of the double-lumen PICC line was accessed and aspirated/flushed easily. The cathete r was secured to the skin utilizing a Stat-Lock device. A dry sterile dressing was placed. The patient tolerated the procedure well without immediate complication. FINDINGS: Technically successful placement of a dual-lumen 5-[place] 43 cm PICC line via the left brachial vein . Tip of the catheter overlies the cavoatrial junction. Final spot fluoroscopic image of catheter placement was obtained. IMPRESSION: Technically successful left upper extremity PICC line placement. POS: [facility]
--- NOTE | 2017-05-16 16:26 | PDOC.CTH ---
Cardiology Progress Note - Subjective Breathing is better. No chest pain, tightness, pressure. - Objective Vital Signs Temp Pulse Resp BP BP Pulse Ox 05/16/17 12:30 60 18 109/73 96 05/16/17 09:21 111/79 05/16/17 06:57 96.8 F L 59 L 20 111/79 95 Weight 146 lb 9 oz 05/15/17 05/16/17 05/17/17 06:59 06:59 06:59 Intake Total 460 710 Output Total 100 395 Balance 360 315 - Physical Examination General/Neuro: alert & oriented x3, NAD Neck: no JVD present Lungs: unlabored respirations, other: (bilat crackles still.) Heart: RRR Abdomen: NT/ND Extremities: + edema B (2+) - Telemetry Telemetry Rhythm: NSR - Labs Result Diagrams: 05/15/17 04:41 05/16/17 05:03 Troponin/CKMB CK-MB (CK-2) 4.0 ng/mL (0-6.6) 05/15/17 04:41 Troponin I 0.065 ng/mL (< 0.028) H 05/15/17 04:41 - Assessment/Plan 1. Acute on chronic systolic heart failure 2. EF at 15-20% 3. Non ischemic cardiomyopathy 4. Presence of a dual chamber PPM 5. Mild CAD 6. Non compliance 7. Acute on chronic ELOISA. PLAN: - Continue IV diuresis - Continue Inotropic support. 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
[2017-05-16] MEDS: Simvastatin 5 MG TAB PO SCH (20:45)
[2017-05-17 02:15] LABS: Bacteria/HPF None Seen HPF (None Seen); Hyaline Casts/LPF 7-10 HYALINE CAST LPF (0-3 Hyaline); Squamous Epithelial 0-3 HPF (0-3); WBC/HPF 0-3 HPF (0-3)
[2017-05-17] MEDS: Furosemide 40 MG/4 ML VIAL SLOW IVP SCH ×2 (06:46→15:19)
--- NOTE | 2017-05-17 07:56 | RAD ---
AP VIEW CHEST: DATE: 05/16/17. HISTORY: Hypothermia. COMPARISON: Comparison is made to previous exam from 05/14/17. FINDINGS: AP view chest demonstrates a dual-lead intracardiac pacing device. Cardiomegaly is seen. EKG leads seen over the chest. Bilateral pleural effusions seen. Areas of airspace opacity are seen in both lung bases. No other significant intrathoracic abnormalities seen. IMPRESSION: Cardiomegaly and bilateral pleural effusions. POS: [facility]
[2017-05-17] MEDS: Doxycycline 100 MG CAP PO SCH ×2 (10:20→21:11)
[2017-05-17] MEDS: Folic Acid 1 MG TAB PO SCH (10:20)
[2017-05-17] MEDS: Cyanocobalamin (Vitamin B-12) 1,000 MCG TAB PO SCH (10:21)
[2017-05-17] MEDS: Carvedilol 6.25 MG TAB PO SCH ×2 (10:21→21:11)
--- NOTE | 2017-05-17 10:24 | PDOC.PN ---
- Subjective Encounter Start Date: 05/17/17 Encounter Start Time: 08:00 Pt seen for followup re: acute on chronic CHF. Says he feels better. No chest pain, dyspnea better. No nausea or vomiting. - Objective Resuscitation Status: Resuscitation Status DNR:Do Not Resuscitate MAR Reviewed: Yes Vital Signs & Weight: Vital Signs (12 hours) Temp Pulse Resp BP BP Pulse Ox 05/17/17 08:21 97.5 F L 66 17 127/83 96 05/17/17 06:43 59 L 20 137/78 05/17/17 04:30 96.4 F L 78 20 138/75 93 L 05/16/17 23:06 96.3 F L 60 20 130/76 96 Weight Weight 149 lb 3.2 oz I&O: 05/16/17 05/17/17 05/18/17 06:59 06:59 06:59 Intake Total 710 644 Output Total 395 875 Balance 315 -231 Result Diagrams: 05/15/17 04:41 05/16/17 05:03 EKG Reviewed by me: Yes (Tele: NSR) Phys Exam - Physical Examination Constitutional: NAD HEENT: moist MMs, oral pharynx no lesions Neck: supple Respiratory: no wheezing, no rhonchi Bibasal crackles Cardiovascular: RRR Gastrointestinal: soft, positive bowel sounds Musculoskeletal: pulses present, edema present Neurological: moves all 4 limbs Psychiatric: normal affect Dx/Plan (1) Acute on chronic systolic heart failure Code(s): I50.23 - ACUTE ON CHRONIC SYSTOLIC (CONGESTIVE) HEART FAILURE Status : Acute (2) CAP (community acquired pneumonia) Code(s): J18.9 - PNEUMONIA, UNSPECIFIED ORGANISM Status: Acute (3) CKD (chronic kidney disease) stage 3, GFR 30-59 ml/min Code(s): N18.3 - CHRONIC KIDNEY DISEASE, STAGE 3 (MODERATE) Status: Chronic (4) Chronic anemia Code(s): D64.9 - ANEMIA, UNSPECIFIED Status: Chronic (5) Coronary artery disease Code(s): I25.10 - ATHSCL HEART DISEASE OF [place] CORONARY ARTERY W/O ANG PCTRS Status: Chronic (6) Dyslipidemia Code(s): E78.5 - HYPERLIPIDEMIA, UNSPECIFIED Status: Chronic (7) GERD (gastroesophageal reflux disease) Code(s): K21.9 - GASTRO-ESOPHAGEAL REFLUX DISEASE WITHOUT ESOPHAGITIS Status: Chronic Qualifiers: - Plan continue antibiotics, PT/OT, out of bed/ambulate * . Continue antibiotics for ? CAP. Continue diuretics. Ambulate pt. Review of Systems - Review of Systems Respiratory: SOB with Excertion. negative: Cough, Dry, Shortness of Breath, Hemoptysis, Pleuritic Pain, Sputum, Wheezing Cardiovascular: negative: Chest Pain, Palpitations, Orthopnea, Paroxysmal Noc. Dyspnea, Edema, Light Headedness Gastrointestinal: negative: Nausea, Vomiting, Abdominal Pain, Diarrhea, Constipation, Melena, Hematochezia - Medications/Allergies Allergies/Adverse Reactions: Allergies Allergy/AdvReac Type Severity Reaction Status Date / Time No Known Allergies Allergy Verified 05/14/17 17:42 Medications: Current Medications Acetaminophen (Tylenol) 650 mg PO Q4H PRN PRN Reason: Headache/Fever or Pain Hydrocodone Bitart/Acetaminophen ([place] 5/325) 1 tab PO Q4H PRN PRN Reason: Moderate Pain (4-6) Al Hydroxide/Mg Hydroxide (Maalox) 30 ml PO Q6H PRN PRN Reason: Heartburn or Indigestion Albuterol/Ipratropium (Duoneb) 3 ml NEB [id number] PRN PRN Reason: SOB &/or Wheezing Artificial Tears (Tears Naturale) 0 drop EA EYE PRN PRN PRN Reason: Dry Eyes Aspirin (Aspirin Chewable) 81 mg PO DAILY [facility] Last Admin: 05/16/17 09:21 Dose: 81 mg Carvedilol (Coreg) 6.25 mg PO BID [facility] Last Admin: 05/16/17 20:44 Dose: Not Given Cyanocobalamin (Vitamin B-12) 1,000 mcg PO DAILY [facility] Last Admin: 05/16/17 10:08 Dose: Not Given Doxycycline Hyclate (Vibramycin) 100 mg PO BID [facility] Last Admin: 05/16/17 20:45 Dose: 100 mg Enoxaparin Sodium (Lovenox) 30 mg SC 09 [facility] Last Admin: 05/16/17 10:07 Dose: Not Given Folic Acid (Folvite) 1 mg PO DAILY [facility] Last Admin: 05/16/17 09:21 Dose: 1 mg Furosemide (Lasix) 40 mg SLOW IVP 0600,1400 [facility] Last Admin: 05/17/17 06:46 Dose: 40 mg Guaifenesin (Robitussin Sf) 200 mg PO Q4H PRN PRN Reason: Cough Hydralazine HCl (Apresoline) 10 mg SLOW IVP Q4H PRN PRN Reason: Systolic BP > 180 Dobutamine HCl/Dextrose (Dobutamine 500 Mg/250 Ml) 250 mls @ 0 mls/hr IVPB INF [facility]; As Directed PRN Reason: Protocol Last Admin: 05/16/17 09:20 Dose: 250 mls Levofloxacin (Levaquin) 250 mg PO 0600 [facility] Last Admin: 05/17/17 06:45 Dose: 250 mg Loperamide HCl (Imodium) 2 mg PO PRN PRN PRN Reason: Diarrhea/Loose Stools Loratadine (Claritin) 10 mg PO DAILYPRN PRN PRN Reason: Sinus Symptoms Magnesium Hydroxide (Milk Of Magnesium) 30 ml PO DAILYPRN PRN PRN Reason: Constipation Meclizine HCl (Antivert) 12.5 mg PO BIDPRN PRN PRN Reason: Dizziness Mineral Oil/White Petrolatum (Eucerin Cream) 0 gm TOP BIDPRN PRN PRN Reason: Dry Skin Nitroglycerin (Nitrostat) 0.4 mg SL Q5MIN PRN PRN Reason: Chest Pain Ondansetron HCl (Zofran Odt) 4 mg PO Q6H PRN PRN Reason: Nausea/Vomiting Ondansetron HCl (Zofran) 4 mg IVP Q6H PRN PRN Reason: Nausea/Vomiting Phenol (Chloraseptic [place] 180 Ml Bot) 0 ml PO PRN PRN PRN Reason: Sore Throat Senna (Senokot) 2 tab PO HSPRN PRN PRN Reason: Constipation Simvastatin (Zocor) 10 mg PO HS [facility] Last Admin: 05/16/17 20:45 Dose: 10 mg Sodium Chloride ([place] Nasal [place] 0.65%) 0 ml EA NARE QIDPRN PRN PRN Reason: Nasal Congestion Sodium Chloride (Flush - Normal Saline) 10 ml IVF Q12HR [facility] Last Admin: 05/16/17 20:45 Dose: 10 ml Sodium Chloride (Flush - Normal Saline) 10 ml IVF PRN PRN PRN Reason: Saline Flush Last Admin: 05/17/17 06:46 Dose: 10 ml Zolpidem Tartrate (Ambien) 5 mg PO HSPRN PRN PRN Reason: Insomnia
[2017-05-17] MEDS: DOBUTamine 500 mg/250 ml 250 ML IVPB SCH (11:16)
[2017-05-17] MEDS: Enoxaparin Sodium 30 MG/0.3 ML SYRINGE SC SCH ×2 (11:21→12:43)
--- NOTE | 2017-05-17 15:31 | PDOC.CTH ---
Cardiology Progress Note - Subjective No new issues. His breathing remains similar as yesterday. Labs still pending today. - Objective Vital Signs Temp Pulse Pulse Pulse Resp BP BP 05/17/17 12:47 60 64 120/73 05/17/17 11:49 96 F L 61 16 05/17/17 10:35 97.5 F L 61 16 05/17/17 10:21 116/69 05/17/17 08:21 97.5 F L 66 17 05/17/17 06:43 59 L 20 05/17/17 04:30 96.4 F L 78 20 BP BP Pulse Ox Pulse Ox Pulse Ox 05/17/17 12:47 110/59 L 99 95 05/17/17 11:49 123/65 94 L 05/17/17 10:35 96 05/17/17 10:21 05/17/17 08:21 127/83 96 05/17/17 06:43 137/78 05/17/17 04:30 138/75 93 L Weight 149 lb 3.2 oz 05/16/17 05/17/17 05/18/17 06:59 06:59 06:59 Intake Total 710 644 Output Total 395 875 Balance 315 -231 - Physical Examination General/Neuro: alert & oriented x3, NAD Neck: no JVD present Lungs: unlabored respirations Heart: RRR Abdomen: NT/ND Extremities: + edema B (2+) - Telemetry Telemetry Rhythm: NSR - Labs Result Diagrams: 05/15/17 04:41 05/16/17 05:03 Troponin/CKMB CK-MB (CK-2) 4.0 ng/mL (0-6.6) 05/15/17 04:41 Troponin I 0.065 ng/mL (< 0.028) H 05/15/17 04:41 - Assessment/Plan 1. Acute on chronic systolic heart failure 2. EF at 15-20% 3. Non ischemic cardiomyopathy 4. Presence of a dual chamber PPM 5. Mild CAD 6. Non compliance 7. Acute on chronic ELOISA. PLAN: - Continue IV diuresis - Continue Inotropic support. - Poor longterm prognosis.
[2017-05-17 19:03] LABS: Anion Gap 18 mmol/L (10-20); BUN (Urea Nitrogen) 92 mg/dL (8.4-25.7); Calc. Creatinine Clearance 17 mL/min (70-130); Calcium 9.4 mg/dL (7.8-10.44); Carbon Dioxide 25 mmol/L (23-31); Chloride 105 mmol/L (98-107); Estimated GFR-MDRD 25
[2017-05-17] MEDS: Simvastatin 5 MG TAB PO SCH (21:11)
[2017-05-17] MEDS ORDERED: Magnesium 2 GM/NS 0.9% 100 ML 2 GM in Premix Bag 1 BAG IVPB SCH (23:00)
[2017-05-18 06:16] LABS: Anion Gap 17 mmol/L (10-20); BUN (Urea Nitrogen) 93 mg/dL (8.4-25.7); Calc. Creatinine Clearance 16 mL/min (70-130); Calcium 9.4 mg/dL (7.8-10.44); Carbon Dioxide 26 mmol/L (23-31); Chloride 105 mmol/L (98-107); Estimated GFR-MDRD 25
[2017-05-18] MEDS: Furosemide 40 MG/4 ML VIAL SLOW IVP SCH ×2 (06:49→14:27)
[2017-05-18] MEDS: Cyanocobalamin (Vitamin B-12) 1,000 MCG TAB PO SCH (08:59)
[2017-05-18] MEDS ORDERED: cefTRIAXone\\ROCEPHIN 1 GM in Sodium Chloride 0.9% 100 ML IVPB SCH (09:00)
[2017-05-18] MEDS: Carvedilol 6.25 MG TAB PO SCH ×2 (09:09→22:04)
[2017-05-18] MEDS: Enoxaparin Sodium 30 MG/0.3 ML SYRINGE SC SCH (09:10)
[2017-05-18] MEDS: Doxycycline 100 MG CAP PO SCH ×2 (09:10→22:04)
[2017-05-18] MEDS: Folic Acid 1 MG TAB PO SCH (09:10)
[2017-05-18] MEDS: Sulfameth/Trimethoprim DS 800-160mg TAB PO SCH ×2 (09:10→22:04)
[2017-05-18 09:35] LABS: #Lymphocytes 0.3 thou/uL (1.20-3.40); #Monocytes 0.3 thou/uL (0.11-0.59); #Neutrophils 3.6 thou/uL (1.40-6.50); %Basophils 0.3 % (0.0-1.0); %Eosinophils 0.5 % (0.0-10.0); %Lymphocytes 7.1 % (21.0-51.0); %Monocytes 6.7 % (0.0-10.0); Hematocrit 47.3 % (42.0-52.0); Red Blood Cell (RBC) Count 4.45 mill/uL (4.70-6.10); White Blood Cell (WBC) Count 4.2 thou/uL (4.8-10.8)
--- NOTE | 2017-05-18 10:49 | PDOC.PN ---
- Subjective Encounter Start Date: 05/18/17 Encounter Start Time: 08:00 Pt seen for followup re: systolic CHF exacerbation. Says he feels better. Denies chest pain, fever or chills. Shortness of breath is better. - Objective Resuscitation Status: Resuscitation Status DNR:Do Not Resuscitate MAR Reviewed: Yes Vital Signs & Weight: Vital Signs (12 hours) Temp Pulse Resp BP BP BP Pulse Ox 05/18/17 09:09 132/65 05/18/17 09:03 97.5 F L 75 12 132/65 98 05/18/17 06:48 60 16 145/81 H 05/18/17 04:00 97.5 F L 60 18 121/74 98 05/18/17 00:49 96.9 F L 60 16 132/86 96 Weight Weight 145 lb 8 oz I&O: 05/17/17 05/18/17 05/19/17 06:59 06:59 06:59 Intake Total 644 1444 Output Total 875 1315 Balance -231 129 Result Diagrams: 05/18/17 05:47 05/18/17 05:47 EKG Reviewed by me: Yes (Tele: electronic paced rhythm) Phys Exam - Physical Examination Constitutional: NAD HEENT: moist MMs, oral pharynx no lesions Neck: supple Respiratory: no wheezing, no rales, no rhonchi, clear to auscultation bilateral Cardiovascular: RRR Gastrointestinal: soft Musculoskeletal: pulses present, edema present Neurological: moves all 4 limbs Psychiatric: normal affect Dx/Plan (1) Acute on chronic systolic heart failure Code(s): I50.23 - ACUTE ON CHRONIC SYSTOLIC (CONGESTIVE) HEART FAILURE Status : Acute (2) CAP (community acquired pneumonia) Code(s): J18.9 - PNEUMONIA, UNSPECIFIED ORGANISM Status: Acute (3) CKD (chronic kidney disease) stage 3, GFR 30-59 ml/min Code(s): N18.3 - CHRONIC KIDNEY DISEASE, STAGE 3 (MODERATE) Status: Chronic (4) Chronic anemia Code(s): D64.9 - ANEMIA, UNSPECIFIED Status: Chronic (5) Coronary artery disease Code(s): I25.10 - ATHSCL HEART DISEASE OF [place] CORONARY ARTERY W/O ANG PCTRS Status: Chronic (6) Dyslipidemia Code(s): E78.5 - HYPERLIPIDEMIA, UNSPECIFIED Status: Chronic (7) GERD (gastroesophageal reflux disease) Code(s): K21.9 - GASTRO-ESOPHAGEAL REFLUX DISEASE WITHOUT ESOPHAGITIS Status: Chronic Qualifiers: - Plan continue antibiotics, DVT proph w/lovenox * . Continue inotropes. Continue diuretics. Continue antibiotics. Not on ACEI/ARB due to CKD. Review of Systems - Review of Systems Constitutional: negative: Fever, Chills, Sweats, Weakness, Malaise Respiratory: SOB with Excertion. negative: Cough, Dry, Shortness of Breath, Hemoptysis, Pleuritic Pain, Sputum, Wheezing Cardiovascular: negative: Chest Pain, Palpitations, Orthopnea, Paroxysmal Noc. Dyspnea, Edema, Light Headedness, Other - Medications/Allergies Allergies/Adverse Reactions: Allergies Allergy/AdvReac Type Severity Reaction Status Date / Time No Known Allergies Allergy Verified 05/14/17 17:42 Medications: Current Medications Acetaminophen (Tylenol) 650 mg PO Q4H PRN PRN Reason: Headache/Fever or Pain Hydrocodone Bitart/Acetaminophen ([place] 5/325) 1 tab PO Q4H PRN PRN Reason: Moderate Pain (4-6) Al Hydroxide/Mg Hydroxide (Maalox) 30 ml PO Q6H PRN PRN Reason: Heartburn or Indigestion Albuterol/Ipratropium (Duoneb) 3 ml NEB [id number] PRN PRN Reason: SOB &/or Wheezing Artificial Tears (Tears Naturale) 0 drop EA EYE PRN PRN PRN Reason: Dry Eyes Aspirin (Aspirin Chewable) 81 mg PO DAILY [facility] Last Admin: 05/18/17 09:09 Dose: 81 mg Carvedilol (Coreg) 6.25 mg PO BID [facility] Last Admin: 05/18/17 09:09 Dose: 6.25 mg Cyanocobalamin (Vitamin B-12) 1,000 mcg PO DAILY [facility] Last Admin: 05/18/17 08:59 Dose: Not Given Doxycycline Hyclate (Vibramycin) 100 mg PO BID [facility] Last Admin: 05/18/17 09:10 Dose: 100 mg Enoxaparin Sodium (Lovenox) 30 mg SC 0900 [facility] Last Admin: 05/18/17 09:10 Dose: Not Given Folic Acid (Folvite) 1 mg PO DAILY [facility] Last Admin: 05/18/17 09:10 Dose: 1 mg Furosemide (Lasix) 40 mg SLOW IVP 0600,1400 [facility] Last Admin: 05/18/17 06:49 Dose: 40 mg Guaifenesin (Robitussin Sf) 200 mg PO Q4H PRN PRN Reason: Cough Hydralazine HCl (Apresoline) 10 mg SLOW IVP Q4H PRN PRN Reason: Systolic BP > 180 Dobutamine HCl/Dextrose (Dobutamine 500 Mg/250 Ml) 250 mls @ 0 mls/hr IVPB INF [facility]; As Directed PRN Reason: Protocol Last Admin: 05/17/17 11:16 Dose: 250 mls Levofloxacin (Levaquin) 250 mg PO 0600 [facility] Last Admin: 05/18/17 06:49 Dose: 250 mg Loperamide HCl (Imodium) 2 mg PO PRN PRN PRN Reason: Diarrhea/Loose Stools Loratadine (Claritin) 10 mg PO DAILYPRN PRN PRN Reason: Sinus Symptoms Magnesium Hydroxide (Milk Of Magnesium) 30 ml PO DAILYPRN PRN PRN Reason: Constipation Meclizine HCl (Antivert) 12.5 mg PO BIDPRN PRN PRN Reason: Dizziness Mineral Oil/White Petrolatum (Eucerin Cream) 0 gm TOP BIDPRN PRN PRN Reason: Dry Skin Nitroglycerin (Nitrostat) 0.4 mg SL Q5MIN PRN PRN Reason: Chest Pain Ondansetron HCl (Zofran Odt) 4 mg PO Q6H PRN PRN Reason: Nausea/Vomiting Ondansetron HCl (Zofran) 4 mg IVP Q6H PRN PRN Reason: Nausea/Vomiting Phenol (Chloraseptic [place] 180 Ml Bot) 0 ml PO PRN PRN PRN Reason: Sore Throat Senna (Senokot) 2 tab PO HSPRN PRN PRN Reason: Constipation Simvastatin (Zocor) 10 mg PO HS [facility] Last Admin: 05/17/17 21:11 Dose: 10 mg Sodium Chloride ([place] Nasal [place] 0.65%) 0 ml EA NARE QIDPRN PRN PRN Reason: Nasal Congestion Sodium Chloride (Flush - Normal Saline) 10 ml IVF Q12HR [facility] Last Admin: 05/18/17 09:10 Dose: Not Given Sodium Chloride (Flush - Normal Saline) 10 ml IVF PRN PRN PRN Reason: Saline Flush Last Admin: 05/18/17 06:49 Dose: 10 ml Trimethoprim/Sulfamethoxazole (Bactrim Ds) 1 tab PO BID [facility] Last Admin: 05/18/17 09:10 Dose: 1 tab Zolpidem Tartrate (Ambien) 5 mg PO HSPRN PRN PRN Reason: Insomnia
[2017-05-18] MEDS: DOBUTamine 500 mg/250 ml 250 ML IVPB SCH (16:12)
[2017-05-18] MEDS: Simvastatin 5 MG TAB PO SCH (22:04)
[2017-05-19] MEDS: Furosemide 40 MG/4 ML VIAL SLOW IVP SCH (06:50)
[2017-05-19] MEDS: Enoxaparin Sodium 30 MG/0.3 ML SYRINGE SC SCH (07:44)
[2017-05-19 08:13] LABS: Anion Gap 18 mmol/L (10-20); BUN (Urea Nitrogen) 101 mg/dL (8.4-25.7); Calc. Creatinine Clearance 15 mL/min (70-130); Calcium 9.4 mg/dL (7.8-10.44); Carbon Dioxide 27 mmol/L (23-31); Chloride 104 mmol/L (98-107); Estimated GFR-MDRD 23; Magnesium 2.7 mg/dL (1.6-2.6); Phosphorus 5.6 mg/dL (2.3-4.7)
[2017-05-19 08:26] LABS: Free T3 1.85 pg/mL (1.71-3.71)
[2017-05-19 09:08] LABS: #Lymphocytes 0.9 thou/uL (1.20-3.40); #Monocytes 0.3 thou/uL (0.11-0.59); #Neutrophils 3.3 thou/uL (1.40-6.50); %Basophils 0.2 % (0.0-1.0); %Eosinophils 0.3 % (0.0-10.0); %Lymphocytes 19.1 % (21.0-51.0); %Monocytes 6.2 % (0.0-10.0); Band 1 % (5-11); Hematocrit 44.6 % (42.0-52.0); Macrocytosis SLIGHT = 6-15 cells (100X) (0-5/hpf); Mean Platelet Volume 11.5 fL (7.4-10.4); Neutrophil 84 % (42-75); Nucleated RBC 1 % (0); Reactive Lymphocytes 2 % (0-10); Red Blood Cell (RBC) Count 4.22 mill/uL (4.70-6.10); White Blood Cell (WBC) Count 4.4 thou/uL (4.8-10.8)
[2017-05-19] MEDS ORDERED: DOBUTamine 500 mg/250 ml 250 ML IVPB SCH (09:53)
[2017-05-19] MEDS: Sulfameth/Trimethoprim DS 800-160mg TAB PO SCH ×2 (10:05→21:06)
[2017-05-19] MEDS: Doxycycline 100 MG CAP PO SCH ×2 (10:06→21:05)
[2017-05-19] MEDS: Carvedilol 6.25 MG TAB PO SCH ×2 (10:06→21:06)
[2017-05-19] MEDS: Folic Acid 1 MG TAB PO SCH (10:07)
[2017-05-19] MEDS: Cyanocobalamin (Vitamin B-12) 1,000 MCG TAB PO SCH (10:07)
[2017-05-19] MEDS ORDERED: Levothyroxine Sodium 25 MCG TAB PO SCH (10:30)
[2017-05-19] MEDS: Furosemide 40 MG TAB PO SCH (14:21)
--- NOTE | 2017-05-19 16:44 | PDOC.PN ---
- Subjective Encounter Start Date: 05/19/17 Encounter Start Time: 09:00 Pt seen for followup re: hypothyroidism. Denies chest pain or fevers. Denies shortness of breath. - Objective Resuscitation Status: Resuscitation Status DNR:Do Not Resuscitate MAR Reviewed: Yes Vital Signs & Weight: Vital Signs (12 hours) Temp Pulse Pulse Pulse Resp BP BP 05/19/17 11:38 96.4 F L 63 16 05/19/17 10:30 65 63 112/78 05/19/17 10:06 126/70 05/19/17 08:00 96.7 F L 62 16 05/19/17 06:50 60 16 BP BP Pulse Ox 05/19/17 11:38 103/65 98 05/19/17 10:30 126/74 05/19/17 10:06 05/19/17 08:00 121/73 98 05/19/17 06:50 131/77 Weight Admit Weight 148 lb Weight 144 lb I&O: 05/18/17 05/19/17 05/20/17 06:59 06:59 06:59 Intake Total 1444 1010 Output Total 1315 1050 Balance 129 -40 Result Diagrams: 05/19/17 07:33 05/19/17 07:33 EKG Reviewed by me: Yes (Tele: V-paced rhythm) Phys Exam - Physical Examination Constitutional: NAD HEENT: moist MMs Neck: supple Respiratory: no wheezing, no rales, no rhonchi, clear to auscultation bilateral Cardiovascular: RRR, no rub Gastrointestinal: soft, positive bowel sounds Musculoskeletal: edema present Neurological: moves all 4 limbs Psychiatric: normal affect Dx/Plan (1) Hypothyroidism Code(s): E03.9 - HYPOTHYROIDISM, UNSPECIFIED Status: Acute (2) Acute on chronic systolic heart failure Code(s): I50.23 - ACUTE ON CHRONIC SYSTOLIC (CONGESTIVE) HEART FAILURE Status : Acute (3) CAP (community acquired pneumonia) Code(s): J18.9 - PNEUMONIA, UNSPECIFIED ORGANISM Status: Acute (4) CKD (chronic kidney disease) stage 3, GFR 30-59 ml/min Code(s): N18.3 - CHRONIC KIDNEY DISEASE, STAGE 3 (MODERATE) Status: Chronic (5) Chronic anemia Code(s): D64.9 - ANEMIA, UNSPECIFIED Status: Chronic (6) Coronary artery disease Code(s): I25.10 - ATHSCL HEART DISEASE OF [place] CORONARY ARTERY W/O ANG PCTRS Status: Chronic (7) Dyslipidemia Code(s): E78.5 - HYPERLIPIDEMIA, UNSPECIFIED Status: Chronic (8) GERD (gastroesophageal reflux disease) Code(s): K21.9 - GASTRO-ESOPHAGEAL REFLUX DISEASE WITHOUT ESOPHAGITIS Status: Chronic Qualifiers: - Plan continue antibiotics, PT/OT, out of bed/ambulate * . Continue diuretics. Still on dobutamine. No ACEI/ARB due to renal failure. Start synthroid, check thyroid profile on 4-6 weeks. Mobilize patient. Review of Systems - Review of Systems Constitutional: negative: Fever, Chills, Sweats Respiratory: negative: Cough, Dry, Shortness of Breath, Hemoptysis, SOB with Excertion, Pleuritic Pain, Sputum, Wheezing Cardiovascular: Edema. negative: Chest Pain, Palpitations, Orthopnea, Paroxysmal Noc. Dyspnea, Light Headedness - Medications/Allergies Allergies/Adverse Reactions: Allergies Allergy/AdvReac Type Severity Reaction Status Date / Time No Known Allergies Allergy Verified 05/14/17 17:42 Medications: Current Medications Acetaminophen (Tylenol) 650 mg PO Q4H PRN PRN Reason: Headache/Fever or Pain Hydrocodone Bitart/Acetaminophen ([place] 5/325) 1 tab PO Q4H PRN PRN Reason: Moderate Pain (4-6) Al Hydroxide/Mg Hydroxide (Maalox) 30 ml PO Q6H PRN PRN Reason: Heartburn or Indigestion Albuterol/Ipratropium (Duoneb) 3 ml NEB [id number] PRN PRN Reason: SOB &/or Wheezing Artificial Tears (Tears Naturale) 0 drop EA EYE PRN PRN PRN Reason: Dry Eyes Aspirin (Aspirin Chewable) 81 mg PO DAILY [facility] Last Admin: 05/19/17 10:06 Dose: 81 mg Carvedilol (Coreg) 6.25 mg PO BID [facility] Last Admin: 05/19/17 10:06 Dose: 6.25 mg Cyanocobalamin (Vitamin B-12) 1,000 mcg PO DAILY [facility] Last Admin: 05/19/17 10:07 Dose: 1,000 mcg Doxycycline Hyclate (Vibramycin) 100 mg PO BID [facility] Last Admin: 05/19/17 10:06 Dose: 100 mg Enoxaparin Sodium (Lovenox) 30 mg SC 0900 [facility] Last Admin: 05/19/17 07:44 Dose: Not Given Folic Acid (Folvite) 1 mg PO DAILY [facility] Last Admin: 05/19/17 10:07 Dose: 1 mg Furosemide (Lasix) 40 mg PO 0900,1400 [facility] Last Admin: 05/19/17 14:21 Dose: Not Given Guaifenesin (Robitussin Sf) 200 mg PO Q4H PRN PRN Reason: Cough Hydralazine HCl (Apresoline) 10 mg SLOW IVP Q4H PRN PRN Reason: Systolic BP > 180 Levofloxacin (Levaquin) 250 mg PO 0600 [facility] Last Admin: 05/19/17 06:50 Dose: 250 mg Levothyroxine Sodium (Synthroid) 25 mcg PO 0600 [facility] Loperamide HCl (Imodium) 2 mg PO PRN PRN PRN Reason: Diarrhea/Loose Stools Loratadine (Claritin) 10 mg PO DAILYPRN PRN PRN Reason: Sinus Symptoms Magnesium Hydroxide (Milk Of Magnesium) 30 ml PO DAILYPRN PRN PRN Reason: Constipation Meclizine HCl (Antivert) 12.5 mg PO BIDPRN PRN PRN Reason: Dizziness Mineral Oil/White Petrolatum (Eucerin Cream) 0 gm TOP BIDPRN PRN PRN Reason: Dry Skin Nitroglycerin (Nitrostat) 0.4 mg SL Q5MIN PRN PRN Reason: Chest Pain Ondansetron HCl (Zofran Odt) 4 mg PO Q6H PRN PRN Reason: Nausea/Vomiting Ondansetron HCl (Zofran) 4 mg IVP Q6H PRN PRN Reason: Nausea/Vomiting Phenol (Chloraseptic [place] 180 Ml Bot) 0 ml PO PRN PRN PRN Reason: Sore Throat Senna (Senokot) 2 tab PO HSPRN PRN PRN Reason: Constipation Simvastatin (Zocor) 10 mg PO HS [facility] Last Admin: 05/18/17 22:04 Dose: 10 mg Sodium Chloride ([place] Nasal [place] 0.65%) 0 ml EA NARE QIDPRN PRN PRN Reason: Nasal Congestion Sodium Chloride (Flush - Normal Saline) 10 ml IVF Q12HR [facility] Last Admin: 05/19/17 10:26 Dose: Not Given Sodium Chloride (Flush - Normal Saline) 10 ml IVF PRN PRN PRN Reason: Saline Flush Last Admin: 05/19/17 06:51 Dose: 10 ml Trimethoprim/Sulfamethoxazole (Bactrim Ds) 1 tab PO BID [facility] Last Admin: 05/19/17 10:05 Dose: 1 tab Zolpidem Tartrate (Ambien) 5 mg PO HSPRN PRN PRN Reason: Insomnia
[2017-05-19] MEDS: Simvastatin 5 MG TAB PO SCH (21:06)
[2017-05-20] MEDS: Levothyroxine Sodium 25 MCG TAB PO SCH (05:55)
[2017-05-20 06:41] LABS: Anion Gap 20 mmol/L (10-20); BUN (Urea Nitrogen) 115 mg/dL (8.4-25.7); Calc. Creatinine Clearance 13 mL/min (70-130); Calcium 9.5 mg/dL (7.8-10.44); Carbon Dioxide 25 mmol/L (23-31); Chloride 105 mmol/L (98-107); Estimated GFR-MDRD 19
[2017-05-20 06:43] LABS: Hematocrit 46.5 % (42.0-52.0); Mean Platelet Volume 12.1 fL (7.4-10.4); Neutrophil 93 % (42-75); Nucleated RBC 1 % (0); Red Blood Cell (RBC) Count 4.38 mill/uL (4.70-6.10); White Blood Cell (WBC) Count 5.2 thou/uL (4.8-10.8)
[2017-05-20] MEDS ORDERED: Dextrose 50% Abboject 50 ML SYRINGE SLOW IVP SCH (07:45)
[2017-05-20] MEDS: Enoxaparin Sodium 30 MG/0.3 ML SYRINGE SC SCH (07:49)
[2017-05-20] MEDS: Doxycycline 100 MG CAP PO SCH ×2 (07:50→20:24)
[2017-05-20] MEDS: Furosemide 40 MG TAB PO SCH ×2 (07:50→13:21)
[2017-05-20] MEDS: Cyanocobalamin (Vitamin B-12) 1,000 MCG TAB PO SCH (07:50)
[2017-05-20] MEDS: Folic Acid 1 MG TAB PO SCH (07:51)
[2017-05-20] MEDS: Carvedilol 6.25 MG TAB PO SCH ×2 (07:51→20:25)
[2017-05-20] MEDS: Sulfameth/Trimethoprim DS 800-160mg TAB PO SCH ×2 (07:51→20:25)
--- NOTE | 2017-05-20 14:04 | PDOC.PN ---
- Subjective Encounter Start Date: 05/20/17 Encounter Start Time: 08:20 Pt seen for followup re: acute on chronic heart failure. Says he feels better. Denies chest pain, shortness of breath, fevers or chills. - Objective Resuscitation Status: Resuscitation Status DNR:Do Not Resuscitate MAR Reviewed: Yes Vital Signs & Weight: Vital Signs (12 hours) Temp Pulse Resp BP BP Pulse Ox 05/20/17 08:00 96.2 F L 60 18 120/73 95 05/20/17 07:51 127/80 05/20/17 04:00 97.7 F 63 18 125/72 93 L Weight Admit Weight 148 lb Weight 141 lb 9.6 oz I&O: 05/19/17 05/20/17 05/21/17 06:59 06:59 06:59 Intake Total 1010 770 Output Total 1050 750 Balance -40 20 Result Diagrams: 05/20/17 06:05 05/20/17 06:05 Additional Labs: Accuchecks 05/20/17 05/20/17 08:49 07:21 POC Glucose 285 H 40 L* EKG Reviewed by me: Yes (Tele: NSR) Phys Exam - Physical Examination Constitutional: NAD HEENT: moist MMs, oral pharynx no lesions Neck: supple Respiratory: no wheezing, no rales, no rhonchi, clear to auscultation bilateral Cardiovascular: RRR, no rub Gastrointestinal: soft, positive bowel sounds Musculoskeletal: pulses present, edema present Neurological: non-focal, moves all 4 limbs Psychiatric: normal affect Dx/Plan (1) Acute on chronic systolic heart failure Code(s): I50.23 - ACUTE ON CHRONIC SYSTOLIC (CONGESTIVE) HEART FAILURE Status : Acute (2) Hypothyroidism Code(s): E03.9 - HYPOTHYROIDISM, UNSPECIFIED Status: Acute (3) CAP (community acquired pneumonia) Code(s): J18.9 - PNEUMONIA, UNSPECIFIED ORGANISM Status: Acute (4) CKD (chronic kidney disease) stage 3, GFR 30-59 ml/min Code(s): N18.3 - CHRONIC KIDNEY DISEASE, STAGE 3 (MODERATE) Status: Chronic (5) Chronic anemia Code(s): D64.9 - ANEMIA, UNSPECIFIED Status: Chronic (6) Coronary artery disease Code(s): I25.10 - ATHSCL HEART DISEASE OF [place] CORONARY ARTERY W/O ANG PCTRS Status: Chronic (7) Dyslipidemia Code(s): E78.5 - HYPERLIPIDEMIA, UNSPECIFIED Status: Chronic (8) GERD (gastroesophageal reflux disease) Code(s): K21.9 - GASTRO-ESOPHAGEAL REFLUX DISEASE WITHOUT ESOPHAGITIS Status: Chronic Qualifiers: - Plan continue antibiotics, PT/OT, out of bed/ambulate, DVT proph w/lovenox * . Still needing BairHugger to maintain body temperature. Started on thyroid replacement (25 mcg daily, given his coexisting cardiomyopathy). Off of dobutamine drip. Ambulate patient. Review of Systems - Review of Systems Respiratory: negative: Cough, Dry, Shortness of Breath, Hemoptysis, SOB with Excertion, Pleuritic Pain, Sputum, Wheezing Cardiovascular: negative: Chest Pain, Palpitations, Orthopnea, Paroxysmal Noc. Dyspnea, Edema, Light Headedness Gastrointestinal: negative: Nausea, Vomiting, Abdominal Pain, Diarrhea, Constipation, Melena, Hematochezia - Medications/Allergies Allergies/Adverse Reactions: Allergies Allergy/AdvReac Type Severity Reaction Status Date / Time No Known Allergies Allergy Verified 05/14/17 17:42 Medications: Current Medications Acetaminophen (Tylenol) 650 mg PO Q4H PRN PRN Reason: Headache/Fever or Pain Hydrocodone Bitart/Acetaminophen ([place] 5/325) 1 tab PO Q4H PRN PRN Reason: Moderate Pain (4-6) Al Hydroxide/Mg Hydroxide (Maalox) 30 ml PO Q6H PRN PRN Reason: Heartburn or Indigestion Albuterol/Ipratropium (Duoneb) 3 ml NEB C2EC-ON PRN PRN Reason: SOB &/or Wheezing Artificial Tears (Tears Naturale) 0 drop EA EYE PRN PRN PRN Reason: Dry Eyes Aspirin (Aspirin Chewable) 81 mg PO DAILY [facility] Last Admin: 05/20/17 07:51 Dose: 81 mg Carvedilol (Coreg) 6.25 mg PO BID [facility] Last Admin: 05/20/17 07:51 Dose: Not Given Cyanocobalamin (Vitamin B-12) 1,000 mcg PO DAILY [facility] Last Admin: 05/20/17 07:50 Dose: 1,000 mcg Doxycycline Hyclate (Vibramycin) 100 mg PO BID [facility] Last Admin: 09/27/17 07:50 Dose: 100 mg Enoxaparin Sodium (Lovenox) 30 mg SC 0900 [facility] Last Admin: 05/20/17 07:49 Dose: Not Given Folic Acid (Folvite) 1 mg PO DAILY [facility] Last Admin: 05/20/17 07:51 Dose: 1 mg Furosemide (Lasix) 40 mg PO 0900,1400 [facility] Last Admin: 05/20/17 13:21 Dose: Not Given Guaifenesin (Robitussin Sf) 200 mg PO Q4H PRN PRN Reason: Cough Hydralazine HCl (Apresoline) 10 mg SLOW IVP Q4H PRN PRN Reason: Systolic BP > 180 Levofloxacin (Levaquin) 250 mg PO 0600 [facility] Last Admin: 05/20/17 05:55 Dose: 250 mg Levothyroxine Sodium (Synthroid) 25 mcg PO 0600 [facility] Last Admin: 05/20/17 05:55 Dose: 25 mcg Loperamide HCl (Imodium) 2 mg PO PRN PRN PRN Reason: Diarrhea/Loose Stools Loratadine (Claritin) 10 mg PO DAILYPRN PRN PRN Reason: Sinus Symptoms Magnesium Hydroxide (Milk Of Magnesium) 30 ml PO DAILYPRN PRN PRN Reason: Constipation Meclizine HCl (Antivert) 12.5 mg PO BIDPRN PRN PRN Reason: Dizziness Mineral Oil/White Petrolatum (Eucerin Cream) 0 gm TOP BIDPRN PRN PRN Reason: Dry Skin Nitroglycerin (Nitrostat) 0.4 mg SL Q5MIN PRN PRN Reason: Chest Pain Ondansetron HCl (Zofran Odt) 4 mg PO Q6H PRN PRN Reason: Nausea/Vomiting Ondansetron HCl (Zofran) 4 mg IVP Q6H PRN PRN Reason: Nausea/Vomiting Last Admin: 05/20/17 07:50 Dose: 4 mg Phenol (Chloraseptic [place] 180 Ml Bot) 0 ml PO PRN PRN PRN Reason: Sore Throat Senna (Senokot) 2 tab PO HSPRN PRN PRN Reason: Constipation Simvastatin (Zocor) 10 mg PO HS [facility] Last Admin: 05/19/17 21:06 Dose: 10 mg Sodium Chloride ([place] Nasal [place] 0.65%) 0 ml EA NARE QIDPRN PRN PRN Reason: Nasal Congestion Sodium Chloride (Flush - Normal Saline) 10 ml IVF Q12HR [facility] Last Admin: 05/20/17 07:52 Dose: 10 ml Sodium Chloride (Flush - Normal Saline) 10 ml IVF PRN PRN PRN Reason: Saline Flush Last Admin: 05/19/17 06:51 Dose: 10 ml Trimethoprim/Sulfamethoxazole (Bactrim Ds) 1 tab PO BID [facility] Last Admin: 05/20/17 07:51 Dose: 1 tab Zolpidem Tartrate (Ambien) 5 mg PO HSPRN PRN PRN Reason: Insomnia
[2017-05-20] MEDS: Simvastatin 5 MG TAB PO SCH (20:24)
[2017-05-21] MEDS: Levothyroxine Sodium 25 MCG TAB PO SCH (05:28)
[2017-05-21 06:23] LABS: Anion Gap 21 mmol/L (10-20); Calc. Creatinine Clearance 116 mL/min (70-130); Calcium 9.5 mg/dL (7.8-10.44); Carbon Dioxide 24 mmol/L (23-31); Chloride 104 mmol/L (98-107); Estimated GFR-MDRD 17
[2017-05-21 06:50] LABS: BUN (Urea Nitrogen) 123 mg/dL (8.4-25.7)
[2017-05-21 07:00] LABS: Band 1 % (5-11); Crenated RBC SLIGHT = 1-5 cells (100X) (None Seen); Hematocrit 48.2 % (42.0-52.0); Mean Platelet Volume 12.6 fL (7.4-10.4); Neutrophil 87 % (42-75); Red Blood Cell (RBC) Count 4.51 mill/uL (4.70-6.10); White Blood Cell (WBC) Count 6.8 thou/uL (4.8-10.8)
[2017-05-21] MEDS: Enoxaparin Sodium 30 MG/0.3 ML SYRINGE SC SCH (07:54)
[2017-05-21] MEDS: Carvedilol 6.25 MG TAB PO SCH ×2 (08:52→22:15)
[2017-05-21] MEDS: Doxycycline 100 MG CAP PO SCH ×2 (08:54→22:14)
[2017-05-21] MEDS: Folic Acid 1 MG TAB PO SCH (08:54)
[2017-05-21] MEDS: Sulfameth/Trimethoprim DS 800-160mg TAB PO SCH (08:54)
[2017-05-21] MEDS: Cyanocobalamin (Vitamin B-12) 1,000 MCG TAB PO SCH (08:54)
[2017-05-21] MEDS: Furosemide 40 MG TAB PO SCH (08:56)
--- NOTE | 2017-05-21 09:55 | CON ---
DATE OF CONSULTATION: 05/21/2017 RENAL MEDICINE HISTORY OF PRESENT ILLNESS: Mr. Mcdonnell is an 86-year-old black male with known multiple medical prob lems, severe CHF, and admitted for CHF exacerbation. We are now being consulted for his acute kidne y injury on top of his chronic renal failure. Please note that this patient due to the CHF has been diuresed. Currently, also receiving Bactrim for his UTI. REVIEW OF SYSTEMS: Decreased mentation, decreased appetite, decreased energy level. Positive for c hronic shortness of breath, but no chest pain. No syncopal episode, no productive cough, no fever o r chills. No gross hematuria, no diarrhea, no constipation, no hematochezia, no melena, no hemateme sis. Appetite is decreased. MEDICATIONS: The patient is currently on [place] 5/325 q.4 p.r.n., aspirin 81 mg tablet once a day, C oreg 6.25 mg p.o. b.i.d., vitamin B12 1000 mg p.o. q.i.d., doxycycline 100 mg p.o. b.i.d., Folvite 1 mg once a day, furosemide 40 mg b.i.d., Zofran 4 mg p.o. q.6 p.r.n., Bactrim DS 1 tablet b.i.d. PAST MEDICAL HISTORY: 1. The patient has history of CHF - severely decreased EF of about 15%. 2. The patient has history of aortic insufficiency, history of severe mitral regurgitation, chronic renal failure, hyperlipidemia, hypertension, sick sinus syndrome - DJD, history of noncompliance. PAST SURGICAL HISTORY: 1. Status post cholecystectomy. 2. Status post cardiac catheterization. 3. Status post dual-chamber pacemaker placement. ALLERGIES: None. TRAUMA: None. IMMUNIZATIONS: Unknown. HOSPITALIZATIONS: Please see past medical history. SOCIAL HISTORY: The patient lives in [place]. Lives with his sister, 6 children, retired [employer] employee. Education: 9th grade. No history of smoking. Denies any alcohol, no IV drug abuse. FAMILY HISTORY: Noncontributory. PHYSICAL EXAMINATION: VITAL SIGNS: Blood pressure is noted at 115/69, heart rate 60, respiratory rate 16, temperature 97. 4, pulse ox 99%. GENERAL: Noted to be awake, lethargic, not in overt distress. SKIN: Decreased turgor. HEENT: Pinkish conjunctivae, anicteric sclerae. NECK: No neck mass, no carotid bruits, no JVD. CHEST: No deformities. LUNGS: Decreased breath sounds. HEART: Normal sinus rhythm. Grade 3/6 systolic murmur. No gallops or rubs. ABDOMEN: Globular, soft, nontender, no masses. EXTREMITIES: No edema, no deformities. LABORATORY DATA: Laboratories of 05/21/2017; sodium 144, potassium 5.4, chloride 104, carbon dioxid e 24, BUN 123, and creatinine 4.15. Calcium is 9.5. Further review of his serum creatinine shows t he following; on 05/20/2017, creatinine 3.65; on 05/19/2017, creatinine 3.15; on 05/18/2017, creatin ine 2.9; on 05/15/2017, creatinine 2.69; on 05/14/2017, creatinine 2.49; on 03/16/2017, creatinine 1 .96. IMAGING: CT scan of the abdomen and pelvis on 01/08/2017 was done which showed anasarca, bilateral pleural effusions. ASSESSMENT AND PLAN: 1. Acute kidney injury on top over his chronic renal failure, consider hemodynamically mediated greg al dysfunction. I would probably adjust the Lasix down to 40 mg tablet once a day. At the same dipti e, I will start patient on salt poor albumin 25 grams IV q.6 for total of 3 days. There is no image d indication for any dialytic intervention. I will also discontinue the Bactrim due to the rising p otassium as well as worsening renal dysfunction. Currently, this patient is on vibramycin. 2. Nonischemic cardiomyopathy, supportive care, poor prognosis. Cardiology is following. Last eje ction fraction is 15%. Recheck basic metabolic panel and CBC in a.m.
--- NOTE | 2017-05-21 11:22 | ULT ---
BILATERAL RENAL ULTRASOUND: Date: 05/21/17 HISTORY: Renal failure. FINDINGS: The right kidney measures 7.0 cm in length and the left kidney measures 7.5 cm in length. The kidne ys are bilaterally echogenic and small without definite focal mass or hydronephrosis. The urinary bl adder is unremarkable with a volume of 110 mL. Incidental note is made of pleural effusions and ascites. IMPRESSION: 1. Atrophic echogenic kidneys consistent with medical renal disease. 2. Pleural effusions. 3. Ascites. POS: BEN
--- NOTE | 2017-05-21 13:02 | PDOC.PN ---
- Subjective Encounter Start Date: 05/21/17 Encounter Start Time: 08:00 Pt seen for followup re: acute on chronic renal failure. Says he feels better, but tired. No nausea or vomiting. No chest pain. - Objective Resuscitation Status: Resuscitation Status DNR:Do Not Resuscitate Vital Signs & Weight: Vital Signs (12 hours) Temp Pulse Resp BP Pulse Ox 05/21/17 11:40 96.3 F L 61 20 102/67 90 L 05/21/17 08:00 97.4 F L 61 18 110/59 L 94 L 05/21/17 04:00 97.4 F L 60 16 115/69 99 Weight Admit Weight 148 lb Weight 147 lb 3.2 oz I&O: 05/20/17 05/21/17 05/22/17 06:59 06:59 06:59 Intake Total 770 1010 Output Total 750 250 Balance 20 760 Result Diagrams: 05/21/17 05:40 05/21/17 05:40 Additional Labs: Accuchecks 05/21/17 06:55 POC Glucose 107 Phys Exam - Physical Examination Constitutional: NAD HEENT: moist MMs, oral pharynx no lesions Neck: supple Respiratory: no wheezing, no rales, no rhonchi, clear to auscultation bilateral Cardiovascular: RRR, no rub Gastrointestinal: soft, positive bowel sounds Musculoskeletal: pulses present, edema present Neurological: moves all 4 limbs Psychiatric: normal affect Skin: no rash Dx/Plan (1) Acute on chronic renal failure Code(s): N17.9 - ACUTE KIDNEY FAILURE, UNSPECIFIED; N18.9 - CHRONIC KIDNEY DISEASE, UNSPECIFIED Status: Acute (2) Acute on chronic systolic heart failure Code(s): I50.23 - ACUTE ON CHRONIC SYSTOLIC (CONGESTIVE) HEART FAILURE Status : Acute (3) Hypothyroidism Code(s): E03.9 - HYPOTHYROIDISM, UNSPECIFIED Status: Acute (4) CAP (community acquired pneumonia) Code(s): J18.9 - PNEUMONIA, UNSPECIFIED ORGANISM Status: Acute (5) Chronic anemia Code(s): D64.9 - ANEMIA, UNSPECIFIED Status: Chronic (6) Coronary artery disease Code(s): I25.10 - ATHSCL HEART DISEASE OF [place] CORONARY ARTERY W/O ANG PCTRS Status: Chronic (7) Dyslipidemia Code(s): E78.5 - HYPERLIPIDEMIA, UNSPECIFIED Status: Chronic (8) GERD (gastroesophageal reflux disease) Code(s): K21.9 - GASTRO-ESOPHAGEAL REFLUX DISEASE WITHOUT ESOPHAGITIS Status: Chronic Qualifiers: - Plan * . Consult nephrology re: sudden worsening of renal function. Pt refusing diuretics, discussed with pt the need to get diuretics. Continue synthroid. Still needing BairHugger. Review of Systems - Review of Systems Constitutional: Weakness. negative: Fever, Chills, Sweats, Malaise Respiratory: SOB with Excertion. negative: Cough, Dry, Shortness of Breath, Hemoptysis, Pleuritic Pain, Sputum, Wheezing Cardiovascular: negative: Chest Pain, Palpitations, Orthopnea, Paroxysmal Noc. Dyspnea, Edema, Light Headedness - Medications/Allergies Allergies/Adverse Reactions: Allergies Allergy/AdvReac Type Severity Reaction Status Date / Time No Known Allergies Allergy Verified 05/14/17 17:42 Medications: Current Medications Acetaminophen (Tylenol) 650 mg PO Q4H PRN PRN Reason: Headache/Fever or Pain Hydrocodone Bitart/Acetaminophen ([place] 5/325) 1 tab PO Q4H PRN PRN Reason: Moderate Pain (4-6) Al Hydroxide/Mg Hydroxide (Maalox) 30 ml PO Q6H PRN PRN Reason: Heartburn or Indigestion Albuterol/Ipratropium (Duoneb) 3 ml NEB [id number] PRN PRN Reason: SOB &/or Wheezing Artificial Tears (Tears Naturale) 0 drop EA EYE PRN PRN PRN Reason: Dry Eyes Aspirin (Aspirin Chewable) 81 mg PO DAILY [facility] Last Admin: 05/21/17 08:54 Dose: 81 mg Carvedilol (Coreg) 6.25 mg PO BID [facility] Last Admin: 05/21/17 08:52 Dose: Not Given Cyanocobalamin (Vitamin B-12) 1,000 mcg PO DAILY [facility] Last Admin: 05/21/17 08:54 Dose: 1,000 mcg Doxycycline Hyclate (Vibramycin) 100 mg PO BID [facility] Last Admin: 05/21/17 08:54 Dose: 100 mg Enoxaparin Sodium (Lovenox) 30 mg SC 0900 [facility] Last Admin: 05/21/17 07:54 Dose: Not Given Folic Acid (Folvite) 1 mg PO DAILY [facility] Last Admin: 05/21/17 08:54 Dose: 1 mg Furosemide (Lasix) 40 mg PO DAILY[facility] Guaifenesin (Robitussin Sf) 200 mg PO Q4H PRN PRN Reason: Cough Hydralazine HCl (Apresoline) 10 mg SLOW IVP Q4H PRN PRN Reason: Systolic BP > 180 Levofloxacin (Levaquin) 250 mg PO 0600 [facility] Last Admin: 05/21/17 05:28 Dose: 250 mg Levothyroxine Sodium (Synthroid) 25 mcg PO 0600 [facility] Last Admin: 05/21/17 05:28 Dose: 25 mcg Loperamide HCl (Imodium) 2 mg PO PRN PRN PRN Reason: Diarrhea/Loose Stools Loratadine (Claritin) 10 mg PO DAILYPRN PRN PRN Reason: Sinus Symptoms Magnesium Hydroxide (Milk Of Magnesium) 30 ml PO DAILYPRN PRN PRN Reason: Constipation Meclizine HCl (Antivert) 12.5 mg PO BIDPRN PRN PRN Reason: Dizziness Last Admin: 05/20/17 20:26 Dose: 12.5 mg Mineral Oil/White Petrolatum (Eucerin Cream) 0 gm TOP BIDPRN PRN PRN Reason: Dry Skin Nitroglycerin (Nitrostat) 0.4 mg SL Q5MIN PRN PRN Reason: Chest Pain Ondansetron HCl (Zofran Odt) 4 mg PO Q6H PRN PRN Reason: Nausea/Vomiting Ondansetron HCl (Zofran) 4 mg IVP Q6H PRN PRN Reason: Nausea/Vomiting Last Admin: 05/20/17 07:50 Dose: 4 mg Phenol (Chloraseptic [place] 180 Ml Bot) 0 ml PO PRN PRN PRN Reason: Sore Throat Senna (Senokot) 2 tab PO HSPRN PRN PRN Reason: Constipation Simvastatin (Zocor) 10 mg PO HS [facility] Last Admin: 05/20/17 20:24 Dose: 10 mg Sodium Chloride ([place] Nasal [place] 0.65%) 0 ml EA NARE QIDPRN PRN PRN Reason: Nasal Congestion Sodium Chloride (Flush - Normal Saline) 10 ml IVF Q12HR [facility] Last Admin: 05/21/17 08:54 Dose: 10 ml Sodium Chloride (Flush - Normal Saline) 10 ml IVF PRN PRN PRN Reason: Saline Flush Last Admin: 05/19/17 06:51 Dose: 10 ml Zolpidem Tartrate (Ambien) 5 mg PO HSPRN PRN PRN Reason: Insomnia
[2017-05-21] MEDS ORDERED: Heparin 5,000 UNITS/ML VIAL SC SCH (21:00)
[2017-05-21] MEDS: Simvastatin 5 MG TAB PO SCH (22:13)
[2017-05-22] MEDS: Levothyroxine Sodium 25 MCG TAB PO SCH (05:34)
[2017-05-22] MEDS ORDERED: Furosemide 40 MG TAB PO SCH ×2 (07:30→09:00)
[2017-05-22 07:44] VITALS: BMI 21.5
--- NOTE | 2017-05-22 08:41 | PRG ---
DATE OF SERVICE: 05/22/2017 SUBJECTIVE: Mr. Mcdonnell is an 86-year-old black male with known history of nonischemic cardiomyopathy - EF 15% and was seen by the Renal Service for his acute kidney injury. I suspect this is all hemo dynamically mediated renal dysfunction secondary to his severely decreased ejection fraction. Of no te, I also stopped the Bactrim due to the worsening potassium and possible contribution to the renal dysfunction. This morning he remains unchanged. He still has the shortness of breath, but this is not any worse. PHYSICAL EXAMINATION: VITAL SIGNS: Blood pressure is noted at 99/60, heart rate 60, respiratory rate 16, temperature 95.5 , pulse ox 91%. GENERAL: Awake, cachectic looking, not in overt distress. SKIN: Decreased turgor. HEENT: The patient has pinkish conjunctivae, anicteric sclerae. NECK: No neck mass, no carotid bruits, no JVD. CHEST: No deformities. LUNGS: Decreased breath sounds. HEART: Normal sinus rhythm. Grade 2/6 systolic murmur, no gallops or rubs. ABDOMEN: Globular, soft, nontender, no masses. EXTREMITIES: Positive for edema. MEDICATIONS: 05/22/2017 - Reviewed. LABORATORY: 05/22/2017 - Hemoglobin 15.2. 05/21/2017 - Sodium 144, potassium 5.4, chloride 104, carbon dioxide 24, BUN 123, creatinine 4.15, g lucose 42, calcium 9.5. ASSESSMENT AND PLAN: 1. Acute kidney injury -- hemodynamically mediated renal dysfunction. Continue current management. I have decided to resume back the Lasix at 40 mg IV q.12 h with salt poor albumin to be given at 2 5 grams IV q.6 h. The renal ultrasound on this patient showed echogenic kidneys and they are noted t o be atrophic. He most likely has a definitive chronic renal failure. Due to his multiple medical comorbid problems, this patient is a poor dialysis candidate. I would not recommend dialysis. Cont inue supportive care with this patient. I would suggest we consider palliative care consult with th is patient. For the moment, I agree with current management.
[2017-05-22] MEDS: Folic Acid 1 MG TAB PO SCH (09:02)
[2017-05-22] MEDS: Doxycycline 100 MG CAP PO SCH ×2 (09:02→22:21)
[2017-05-22] MEDS: Cyanocobalamin (Vitamin B-12) 1,000 MCG TAB PO SCH (09:03)
[2017-05-22] MEDS: Carvedilol 6.25 MG TAB PO SCH ×2 (09:03→22:22)
[2017-05-22] MEDS: Albumin 25% 25 GM/100 ML BOT IVPB SCH ×3 (09:06→22:21)
[2017-05-22] MEDS: Furosemide 40 MG/4 ML VIAL SLOW IVP SCH ×3 (09:07→14:47)
[2017-05-22 10:09] LABS: Anion Gap 26 mmol/L (10-20); Calc. Creatinine Clearance 10 mL/min (70-130); Calcium 9.3 mg/dL (7.8-10.44); Carbon Dioxide 20 mmol/L (23-31); Chloride 102 mmol/L (98-107); Estimated GFR-MDRD 14
[2017-05-22 10:21] LABS: #Monocytes 0.4 thou/uL (0.11-0.59); #Neutrophils 6.3 thou/uL (1.40-6.50); %Basophils 0.1 % (0.0-1.0); %Eosinophils 0.1 % (0.0-10.0); %Lymphocytes 12.5 % (21.0-51.0); %Monocytes 5.2 % (0.0-10.0); Hematocrit 45.2 % (42.0-52.0); Mean Platelet Volume 14.4 fL (7.4-10.4); Red Blood Cell (RBC) Count 4.22 mill/uL (4.70-6.10); White Blood Cell (WBC) Count 7.6 thou/uL (4.8-10.8)
[2017-05-22 10:32] LABS: BUN (Urea Nitrogen) 135 mg/dL (8.4-25.7)
[2017-05-22] MEDS ORDERED: Dextrose 50% Abboject 50 ML SYRINGE ONE (10:32)
[2017-05-22] MEDS: Dextrose 50% Abboject 50 ML SYRINGE SLOW IVP SCH (10:45)
[2017-05-22] MEDS ORDERED: Dextrose 50% Abboject 50 ML SYRINGE SLOW IVP SCH (12:00)
--- NOTE | 2017-05-22 14:51 | EKG ---
Test Reason : Blood Pressure : / mmHG Vent. Rate : 060 BPM Atrial Rate : 060 BPM P-R Int : 000 ms QRS Dur : 132 ms QT Int : 468 ms P-R-T Axes : 063 -52 127 degrees QTc Int : 468 ms Sinus rhythm with 1st degree A-V block Left axis deviation Non-specific intra-ventricular conduction block Cannot rule out Septal infarct , age undetermined Possible Lateral infarct , age undetermined Inferior infarct , age undetermined Abnormal ECG No changes from FEB 2017 Confirmed by JORGE VALLES D.O. ([id number]), video effects editor RUDDY LEO ([id number]) on 05/22/2017 2:51:02 PM Referred By: Confirmed By:JORGE VALLES D.O.
--- NOTE | 2017-05-22 15:10 | PDOC.PN ---
- Subjective Encounter Start Date: 05/22/17 Encounter Start Time: 15:08 Pt seen for followup re: hyperkalemia. Denies chest pain, shortness of breath, fevers or chills. - Objective Resuscitation Status: Resuscitation Status DNR:Do Not Resuscitate MAR Reviewed: Yes Vital Signs & Weight: Vital Signs (12 hours) Temp Pulse Resp BP BP BP Pulse Ox 05/22/17 11:24 59 L 15 109/59 L 05/22/17 09:03 95/55 L 05/22/17 08:55 95.2 F L 05/22/17 07:17 95.2 F L 59 L 15 100 05/22/17 07:00 59 L 28 H 99/55 L 100 05/22/17 04:00 95.5 F L 60 16 99/60 91 L Weight Admit Weight 148 lb Weight 146 lb 1.6 oz I&O: 05/21/17 05/22/17 05/23/17 06:59 06:59 06:59 Intake Total 1010 730 Output Total 250 400 Balance 760 330 Result Diagrams: 05/22/17 08:55 05/22/17 08:55 Additional Labs: Accuchecks 05/22/17 05/22/17 05/22/17 12:37 11:22 10:18 POC Glucose 137 H 55 L* Less than 35 L* EKG Reviewed by me: Yes (Tele: V-paced) Phys Exam - Physical Examination Constitutional: NAD HEENT: moist MMs Neck: supple Respiratory: no wheezing, no rales, no rhonchi, clear to auscultation bilateral Cardiovascular: RRR Gastrointestinal: soft, positive bowel sounds Musculoskeletal: pulses present, edema present Neurological: moves all 4 limbs Psychiatric: normal affect Skin: no rash Dx/Plan (1) Hyperkalemia Code(s): E87.5 - HYPERKALEMIA Status: Acute (2) Acute on chronic renal failure Code(s): N17.9 - ACUTE KIDNEY FAILURE, UNSPECIFIED; N18.9 - CHRONIC KIDNEY DISEASE, UNSPECIFIED Status: Acute (3) Acute on chronic systolic heart failure Code(s): I50.23 - ACUTE ON CHRONIC SYSTOLIC (CONGESTIVE) HEART FAILURE Status : Acute (4) Hypothyroidism Code(s): E03.9 - HYPOTHYROIDISM, UNSPECIFIED Status: Acute (5) CAP (community acquired pneumonia) Code(s): J18.9 - PNEUMONIA, UNSPECIFIED ORGANISM Status: Acute (6) Chronic anemia Code(s): D64.9 - ANEMIA, UNSPECIFIED Status: Chronic (7) Coronary artery disease Code(s): I25.10 - ATHSCL HEART DISEASE OF [place] CORONARY ARTERY W/O ANG PCTRS Status: Chronic (8) Dyslipidemia Code(s): E78.5 - HYPERLIPIDEMIA, UNSPECIFIED Status: Chronic (9) GERD (gastroesophageal reflux disease) Code(s): K21.9 - GASTRO-ESOPHAGEAL REFLUX DISEASE WITHOUT ESOPHAGITIS Status: Chronic Qualifiers: - Plan * . Give kayexelate and beta agonist nebs for hyperkalemia. Cr slightly better today. Still needing [employer]. On low-dose synthroid. Discussed with palliative care service. Pt and son want hospice care for the pt. Son out of town until Thursday. Likely discharge to home with hospice care on thursday. Review of Systems - Review of Systems Respiratory: negative: Cough, Dry, Shortness of Breath, Hemoptysis, SOB with Excertion, Pleuritic Pain, Sputum, Wheezing Cardiovascular: negative: Chest Pain, Palpitations, Orthopnea, Paroxysmal Noc. Dyspnea, Edema, Light Headedness Gastrointestinal: negative: Nausea, Vomiting, Abdominal Pain, Diarrhea, Constipation, Melena, Hematochezia - Medications/Allergies Allergies/Adverse Reactions: Allergies Allergy/AdvReac Type Severity Reaction Status Date / Time No Known Allergies Allergy Verified 05/14/17 17:42 Medications: Current Medications Acetaminophen (Tylenol) 650 mg PO Q4H PRN PRN Reason: Headache/Fever or Pain Hydrocodone Bitart/Acetaminophen ([place] 5/325) 1 tab PO Q4H PRN PRN Reason: Moderate Pain (4-6) Al Hydroxide/Mg Hydroxide (Maalox) 30 ml PO Q6H PRN PRN Reason: Heartburn or Indigestion Albumin Human (Albumin 25%) 25 gm IVPB 0300,0900,1500,2100 [facility] Stop: 05/25/17 03:01 Last Admin: 05/22/17 14:47 Dose: 25 gm Albuterol Sulfate (Albuterol Sulfate) 10 mg NEB Q2HR [facility] Stop: 05/22/17 20:01 Albuterol/Ipratropium (Duoneb) 3 ml NEB [id number] PRN PRN Reason: SOB &/or Wheezing Artificial Tears (Tears Naturale) 0 drop EA EYE PRN PRN PRN Reason: Dry Eyes Aspirin (Aspirin Chewable) 81 mg PO DAILY [facility] Last Admin: 05/22/17 09:04 Dose: 81 mg Carvedilol (Coreg) 6.25 mg PO BID [facility] Last Admin: 05/22/17 09:03 Dose: Not Given Cyanocobalamin (Vitamin B-12) 1,000 mcg PO DAILY [facility] Last Admin: 05/22/17 09:03 Dose: 1,000 mcg Doxycycline Hyclate (Vibramycin) 100 mg PO BID [facility] Last Admin: 05/22/17 09:02 Dose: 100 mg Folic Acid (Folvite) 1 mg PO DAILY [facility] Last Admin: 05/22/17 09:02 Dose: 1 mg Furosemide (Lasix) 40 mg SLOW IVP 0900,1400 [facility] Last Admin: 05/22/17 14:47 Dose: 40 mg Guaifenesin (Robitussin Sf) 200 mg PO Q4H PRN PRN Reason: Cough Hydralazine HCl (Apresoline) 10 mg SLOW IVP Q4H PRN PRN Reason: Systolic BP > 180 Levofloxacin (Levaquin) 250 mg PO 0600 [facility] Last Admin: 05/22/17 05:34 Dose: 250 mg Levothyroxine Sodium (Synthroid) 25 mcg PO 0600 [facility] Last Admin: 05/22/17 05:34 Dose: 25 mcg Loperamide HCl (Imodium) 2 mg PO PRN PRN PRN Reason: Diarrhea/Loose Stools Loratadine (Claritin) 10 mg PO DAILYPRN PRN PRN Reason: Sinus Symptoms Magnesium Hydroxide (Milk Of Magnesium) 30 ml PO DAILYPRN PRN PRN Reason: Constipation Meclizine HCl (Antivert) 12.5 mg PO BIDPRN PRN PRN Reason: Dizziness Last Admin: 05/20/17 20:26 Dose: 12.5 mg Mineral Oil/White Petrolatum (Eucerin Cream) 0 gm TOP BIDPRN PRN PRN Reason: Dry Skin Nitroglycerin (Nitrostat) 0.4 mg SL Q5MIN PRN PRN Reason: Chest Pain Ondansetron HCl (Zofran Odt) 4 mg PO Q6H PRN PRN Reason: Nausea/Vomiting Ondansetron HCl (Zofran) 4 mg IVP Q6H PRN PRN Reason: Nausea/Vomiting Last Admin: 05/20/17 07:50 Dose: 4 mg Phenol (Chloraseptic [place] 180 Ml Bot) 0 ml PO PRN PRN PRN Reason: Sore Throat Senna (Senokot) 2 tab PO HSPRN PRN PRN Reason: Constipation Simvastatin (Zocor) 10 mg PO HS [facility] Last Admin: 05/21/17 22:13 Dose: 10 mg Sodium Chloride ([place] Nasal [place] 0.65%) 0 ml EA NARE QIDPRN PRN PRN Reason: Nasal Congestion Sodium Chloride (Flush - Normal Saline) 10 ml IVF Q12HR [facility] Last Admin: 05/22/17 09:07 Dose: 10 ml Sodium Chloride (Flush - Normal Saline) 10 ml IVF PRN PRN PRN Reason: Saline Flush Last Admin: 05/19/17 06:51 Dose: 10 ml Sodium Polystyrene Sulfonate (Kayexelate Oral Susp 15 Gm/60 Ml) 30 gm PO ONE [facility] Zolpidem Tartrate (Ambien) 5 mg PO HSPRN PRN PRN Reason: Insomnia
[2017-05-22] MEDS ORDERED: Albuterol Sulfate 2.5 mg/3 ml Neb ONE (15:46)
[2017-05-22] MEDS ORDERED: Albuterol Sulfate 2.5 mg/0.5 ml Neb ONE ×2 (15:46→18:03)
[2017-05-22] MEDS: Albuterol Sulfate 1.25 MG/3 ML NEB NEB SCH ×3 (15:57→19:53)
[2017-05-22] MEDS ORDERED: Sodium Chloride 0.9% 1,000 ML IV SCH (19:30)
[2017-05-22] MEDS: Simvastatin 5 MG TAB PO SCH (22:34)
[2017-05-23] MEDS: Albumin 25% 25 GM/100 ML BOT IVPB SCH ×4 (04:34→21:36)
[2017-05-23] MEDS: Levothyroxine Sodium 25 MCG TAB PO SCH (05:45)
[2017-05-23] MEDS: Dextrose 50% Abboject 50 ML SYRINGE SLOW IVP SCH (06:13)
[2017-05-23] MEDS: Doxycycline 100 MG CAP PO SCH ×3 (10:25→21:36)
[2017-05-23] MEDS: Cyanocobalamin (Vitamin B-12) 1,000 MCG TAB PO SCH ×2 (10:26→10:46)
[2017-05-23] MEDS: Furosemide 40 MG/4 ML VIAL SLOW IVP SCH ×2 (10:26→15:25)
[2017-05-23] MEDS: Carvedilol 6.25 MG TAB PO SCH ×2 (10:26→21:37)
[2017-05-23] MEDS: Folic Acid 1 MG TAB PO SCH ×2 (10:26→10:46)
[2017-05-23 12:01] LABS: Hematocrit 40.4 % (42.0-52.0); Mean Platelet Volume 14.3 fL (7.4-10.4); Red Blood Cell (RBC) Count 3.77 mill/uL (4.70-6.10); White Blood Cell (WBC) Count 6.4 thou/uL (4.8-10.8)
[2017-05-23 12:03] LABS: Anion Gap 28 mmol/L (10-20); Calc. Creatinine Clearance 9 mL/min (70-130); Carbon Dioxide 19 mmol/L (23-31); Chloride 103 mmol/L (98-107); Estimated GFR-MDRD 13
[2017-05-23 12:14] LABS: BUN (Urea Nitrogen) 143 mg/dL (8.4-25.7)
[2017-05-23 12:27] LABS: Neutrophil 93 % (42-75); Nucleated RBC 2 % (0)
[2017-05-23] MEDS ORDERED: Albuterol Sulfate 2.5 mg/3 ml Neb ONE (12:37)
[2017-05-23] MEDS ORDERED: Albuterol Sulfate 2.5 mg/0.5 ml Neb ONE (12:37)
[2017-05-23] MEDS: Albuterol Sulfate 2.5 mg/3 ml Neb NEB SCH ×3 (12:50→15:31)
--- NOTE | 2017-05-23 12:50 | PDOC.PN ---
- Subjective Encounter Start Date: 05/23/17 Encounter Start Time: 12:48 Pt seen for followup re: hyperkalemia. Denies chest pain or shortness of breath. Asks to keep him comfortable. - Objective Resuscitation Status: Resuscitation Status DNR:Do Not Resuscitate MAR Reviewed: Yes Vital Signs & Weight: Vital Signs (12 hours) Temp Pulse Resp BP BP Pulse Ox 05/23/17 11:20 60 22 H 123/79 05/23/17 10:26 85/53 L 05/23/17 07:37 94.3 F L 61 20 85/53 L 05/23/17 04:00 94.6 F L 60 16 81/53 L 98 05/23/17 00:49 94 L Weight Admit Weight 148 lb Weight 145 lb 14.4 oz I&O: 05/22/17 05/23/17 05/24/17 06:59 06:59 06:59 Intake Total 730 946 Output Total 400 100 Balance 330 846 Result Diagrams: 05/23/17 11:30 05/23/17 11:30 Additional Labs: Accuchecks 05/23/17 05/23/17 05/22/17 06:50 05:31 20:16 POC Glucose 119 H 54 L* 82 05/22/17 12:37 POC Glucose 137 H EKG Reviewed by me: Yes (Tele: V-paced) Phys Exam - Physical Examination Constitutional: NAD HEENT: moist MMs, oral pharynx no lesions Neck: supple Respiratory: no wheezing, no rales, no rhonchi, clear to auscultation bilateral Cardiovascular: RRR Gastrointestinal: soft, positive bowel sounds Musculoskeletal: pulses present, edema present Neurological: moves all 4 limbs Psychiatric: normal affect Skin: no rash Dx/Plan (1) Hyperkalemia Code(s): E87.5 - HYPERKALEMIA Status: Acute (2) Acute on chronic renal failure Code(s): N17.9 - ACUTE KIDNEY FAILURE, UNSPECIFIED; N18.9 - CHRONIC KIDNEY DISEASE, UNSPECIFIED Status: Acute (3) Acute on chronic systolic heart failure Code(s): I50.23 - ACUTE ON CHRONIC SYSTOLIC (CONGESTIVE) HEART FAILURE Status : Acute (4) Hypothyroidism Code(s): E03.9 - HYPOTHYROIDISM, UNSPECIFIED Status: Acute (5) CAP (community acquired pneumonia) Code(s): J18.9 - PNEUMONIA, UNSPECIFIED ORGANISM Status: Acute (6) Chronic anemia Code(s): D64.9 - ANEMIA, UNSPECIFIED Status: Chronic (7) Coronary artery disease Code(s): I25.10 - ATHSCL HEART DISEASE OF [place] CORONARY ARTERY W/O ANG PCTRS Status: Chronic (8) Dyslipidemia Code(s): E78.5 - HYPERLIPIDEMIA, UNSPECIFIED Status: Chronic (9) GERD (gastroesophageal reflux disease) Code(s): K21.9 - GASTRO-ESOPHAGEAL REFLUX DISEASE WITHOUT ESOPHAGITIS Status: Chronic Qualifiers: - Plan plan discussed w/ family, continue antibiotics * . Discussed with nephrology service. Pt would be a candidate for dialysis. Discussed with patient re: risks vs benefits of fialysis. Pt made an informed decision not to have dialysis, wants to have hospice care at home. Discussed with pt's son over the phone, updated him. Give beta agnoist nebs, recheck potassium level. Likely home on Thursday with hospice care. Continue synthroid for hypothyroidism. Review of Systems - Review of Systems Constitutional: negative: Fever, Chills, Sweats, Weakness, Malaise Cardiovascular: negative: Chest Pain, Palpitations, Orthopnea, Paroxysmal Noc. Dyspnea, Edema, Light Headedness Gastrointestinal: negative: Nausea, Vomiting, Abdominal Pain, Diarrhea, Constipation, Melena, Hematochezia - Medications/Allergies Allergies/Adverse Reactions: Allergies Allergy/AdvReac Type Severity Reaction Status Date / Time No Known Allergies Allergy Verified 05/14/17 17:42 Medications: Current Medications Acetaminophen (Tylenol) 650 mg PO Q4H PRN PRN Reason: Headache/Fever or Pain Hydrocodone Bitart/Acetaminophen ([place] 5/325) 1 tab PO Q4H PRN PRN Reason: Moderate Pain (4-6) Al Hydroxide/Mg Hydroxide (Maalox) 30 ml PO Q6H PRN PRN Reason: Heartburn or Indigestion Albumin Human (Albumin 25%) 25 gm IVPB 0300,0900,1500,2100 [facility] Stop: 05/25/17 03:01 Last Admin: 05/23/17 10:25 Dose: 25 gm Albuterol Sulfate (Ventolin) 10 mg NEB Q1HR [facility] Stop: 05/23/17 15:01 Albuterol/Ipratropium (Duoneb) 3 ml NEB [id number] PRN PRN Reason: SOB &/or Wheezing Artificial Tears (Tears Naturale) 0 drop EA EYE PRN PRN PRN Reason: Dry Eyes Aspirin (Aspirin Chewable) 81 mg PO DAILY [facility] Last Admin: 05/23/17 10:45 Dose: Not Given Carvedilol (Coreg) 6.25 mg PO BID [facility] Last Admin: 05/23/17 10:26 Dose: Not Given Cyanocobalamin (Vitamin B-12) 1,000 mcg PO DAILY [facility] Last Admin: 05/23/17 10:46 Dose: Not Given Doxycycline Hyclate (Vibramycin) 100 mg PO BID [facility] Last Admin: 05/23/17 10:44 Dose: Not Given Folic Acid (Folvite) 1 mg PO DAILY [facility] Last Admin: 05/23/17 10:46 Dose: Not Given Furosemide (Lasix) 40 mg SLOW IVP 0900,1400 [facility] Last Admin: 05/23/17 10:26 Dose: Not Given Guaifenesin (Robitussin Sf) 200 mg PO Q4H PRN PRN Reason: Cough Hydralazine HCl (Apresoline) 10 mg SLOW IVP Q4H PRN PRN Reason: Systolic BP > 180 Levofloxacin (Levaquin) 250 mg PO 0600 [facility] Last Admin: 05/23/17 05:45 Dose: Not Given Levothyroxine Sodium (Synthroid) 25 mcg PO 0600 [facility] Last Admin: 05/23/17 05:45 Dose: Not Given Loperamide HCl (Imodium) 2 mg PO PRN PRN PRN Reason: Diarrhea/Loose Stools Loratadine (Claritin) 10 mg PO DAILYPRN PRN PRN Reason: Sinus Symptoms Magnesium Hydroxide (Milk Of Magnesium) 30 ml PO DAILYPRN PRN PRN Reason: Constipation Meclizine HCl (Antivert) 12.5 mg PO BIDPRN PRN PRN Reason: Dizziness Last Admin: 05/20/17 20:26 Dose: 12.5 mg Mineral Oil/White Petrolatum (Eucerin Cream) 0 gm TOP BIDPRN PRN PRN Reason: Dry Skin Nitroglycerin (Nitrostat) 0.4 mg SL Q5MIN PRN PRN Reason: Chest Pain Ondansetron HCl (Zofran Odt) 4 mg PO Q6H PRN PRN Reason: Nausea/Vomiting Ondansetron HCl (Zofran) 4 mg IVP Q6H PRN PRN Reason: Nausea/Vomiting Last Admin: 05/20/17 07:50 Dose: 4 mg Phenol (Chloraseptic [place] 180 Ml Bot) 0 ml PO PRN PRN PRN Reason: Sore Throat Senna (Senokot) 2 tab PO HSPRN PRN PRN Reason: Constipation Simvastatin (Zocor) 10 mg PO HS [facility] Last Admin: 05/22/17 22:34 Dose: Not Given Sodium Chloride ([place] Nasal [place] 0.65%) 0 ml EA NARE QIDPRN PRN PRN Reason: Nasal Congestion Sodium Chloride (Flush - Normal Saline) 10 ml IVF Q12HR [facility] Last Admin: 05/23/17 10:27 Dose: 10 ml Sodium Chloride (Flush - Normal Saline) 10 ml IVF PRN PRN PRN Reason: Saline Flush Last Admin: 05/19/17 06:51 Dose: 10 ml Zolpidem Tartrate (Ambien) 5 mg PO HSPRN PRN PRN Reason: Insomnia
--- NOTE | 2017-05-23 15:16 | PDOC.CTH ---
Cardiology Progress Note - Subjective He has opted for hospice care, as he does not wish to pursue dialysis. His breathing is stable and much improved compared to admission. He denies current CV symptoms. ROS otherwise negative. - Objective Vital Signs Temp Pulse Resp BP BP Pulse Ox 05/23/17 14:25 80 24 H 05/23/17 12:50 80 13 05/23/17 11:20 60 22 H 123/79 05/23/17 10:26 85/53 L 05/23/17 07:37 94.3 F L 61 20 85/53 L 05/23/17 04:00 94.6 F L 60 16 81/53 L 98 Admit Weight 148 lb Weight 145 lb 14.4 oz 05/22/17 05/23/17 05/24/17 06:59 06:59 06:59 Intake Total 730 946 Output Total 400 100 Balance 330 846 - Labs Result Diagrams: 05/23/17 11:30 05/23/17 11:30 Troponin/CKMB CK-MB (CK-2) 4.0 ng/mL (0-6.6) 05/15/17 04:41 Troponin I 0.065 ng/mL (< 0.028) H 05/15/17 04:41 - Assessment/Plan 1. Acute on chronic systolic heart failure 2. EF at 15-20% 3. Non ischemic cardiomyopathy 4. Presence of a dual chamber PPM 5. Mild CAD 6. Non compliance 7. Acute on chronic ELOISA. PLAN: 1. He has decided not to pursue dialysis treatment and desires hospice care at home. 2. Respiratory status is stable at this time. Continue diuretics for comfort care.
[2017-05-23] MEDS: Simvastatin 5 MG TAB PO SCH (21:37)
[2017-05-24] MEDS: Albumin 25% 25 GM/100 ML BOT IVPB SCH ×6 (02:54→22:34)
[2017-05-24] MEDS: Levothyroxine Sodium 25 MCG TAB PO SCH (05:36)
[2017-05-24] MEDS ORDERED: Dextrose 50% Abboject 50 ML SYRINGE ONE (06:07)
[2017-05-24 06:21] LABS: Hematocrit 38.3 % (42.0-52.0); Mean Platelet Volume 13.7 fL (7.4-10.4); Red Blood Cell (RBC) Count 3.56 mill/uL (4.70-6.10); White Blood Cell (WBC) Count 5.8 thou/uL (4.8-10.8)
[2017-05-24 06:22] LABS: Neutrophil 92 % (42-75); Nucleated RBC 5 % (0); Target Cells SLIGHT = 2-5 cells (100X) (0-1/hpf)
[2017-05-24] MEDS: Doxycycline 100 MG CAP PO SCH ×2 (10:40→22:34)
[2017-05-24] MEDS: Cyanocobalamin (Vitamin B-12) 1,000 MCG TAB PO SCH (10:41)
[2017-05-24] MEDS: Carvedilol 6.25 MG TAB PO SCH ×2 (10:41→22:34)
[2017-05-24] MEDS: Folic Acid 1 MG TAB PO SCH (10:49)
[2017-05-24] MEDS: Furosemide 40 MG/4 ML VIAL SLOW IVP SCH ×2 (10:49→14:19)
--- NOTE | 2017-05-24 11:11 | PDOC.PN ---
- Subjective Encounter Start Date: 05/24/17 Encounter Start Time: 11:04 Patient seen and examined, opting for hospice care, no complaints in the last 24 hours. - Objective Resuscitation Status: Resuscitation Status DNR:Do Not Resuscitate Vital Signs & Weight: Vital Signs (12 hours) Temp Pulse Resp BP BP Pulse Ox 05/24/17 10:41 85/53 L 05/24/17 10:34 78/60 L 05/24/17 08:00 95.7 F L 60 20 80/58 L 96 05/24/17 04:49 99 05/24/17 04:00 95.8 F L 60 22 H 82/53 L 98 05/24/17 02:30 95.7 F L 05/23/17 23:57 94.7 F L 60 20 97/61 99 Weight Admit Weight 148 lb Weight 146 lb 3 oz I&O: 05/23/17 05/24/17 05/25/17 06:59 06:59 06:59 Intake Total 946 320 Output Total 100 150 Balance 846 170 Result Diagrams: 05/24/17 05:45 05/23/17 17:53 Additional Labs: Accuchecks 05/24/17 05/24/17 05/23/17 06:54 05:50 20:21 POC Glucose 143 H 58 L* 84 Phys Exam - Physical Examination Constitutional: NAD HEENT: PERRLA, moist MMs Neck: no nodes, no JVD Respiratory: no wheezing, no rales Cardiovascular: no significant murmur, no rub Gastrointestinal: soft, non-tender Musculoskeletal: pulses present, edema present (trace) Neurological: non-focal, normal sensation Dx/Plan (1) Acute on chronic renal failure Code(s): N17.9 - ACUTE KIDNEY FAILURE, UNSPECIFIED; N18.9 - CHRONIC KIDNEY DISEASE, UNSPECIFIED Status: Acute (2) H/O sick sinus syndrome Code(s): Z86.79 - PERSONAL HISTORY OF OTHER DISEASES OF THE CIRCULATORY SYSTEM Status: Chronic (3) Nonischemic cardiomyopathy Code(s): I42.8 - OTHER CARDIOMYOPATHIES Status: Chronic Comment: Pt refuses to wear Life vest and did not follow up with cardiology last discharge (4) Coronary artery disease Code(s): I25.10 - ATHSCL HEART DISEASE OF [place] CORONARY ARTERY W/O ANG PCTRS Status: Chronic (5) Dyslipidemia Code(s): E78.5 - HYPERLIPIDEMIA, UNSPECIFIED Status: Chronic (6) GERD (gastroesophageal reflux disease) Code(s): K21.9 - GASTRO-ESOPHAGEAL REFLUX DISEASE WITHOUT ESOPHAGITIS Status: Chronic Qualifiers: - Plan * No changes in plan of care for now * hospice care opted for by patient, awaiting placement * continue comfort/palliative care for now * no family at bedside.
[2017-05-24] MEDS ORDERED: Midodrine HCl 5 MG TAB PO SCH (12:00)
[2017-05-24] MEDS ORDERED: diphenhydrAMINE HCl 50 MG/ML 1 ML VIAL IVP PRN (16:52)
[2017-05-24] MEDS ORDERED: ALPRAZolam 0.25 MG TAB PO PRN (16:54)
[2017-05-24] MEDS: Dextrose 50% Abboject 50 ML SYRINGE SLOW IVP PRN (17:03)
[2017-05-24] MEDS: Simvastatin 5 MG TAB PO SCH (22:35)
[2017-05-25] MEDS ORDERED: Dextrose 50% Abboject 50 ML SYRINGE ONE ×3 (01:11→19:44)
[2017-05-25] MEDS: Dextrose 50% Abboject 50 ML SYRINGE SLOW IVP PRN (01:13)
[2017-05-25] MEDS: Albumin 25% 25 GM/100 ML BOT IVPB SCH (03:02)
[2017-05-25] MEDS: Levothyroxine Sodium 25 MCG TAB PO SCH (05:47)
[2017-05-25] MEDS: Furosemide 40 MG/4 ML VIAL SLOW IVP SCH ×2 (09:20→15:12)
[2017-05-25] MEDS: Folic Acid 1 MG TAB PO SCH (09:20)
[2017-05-25] MEDS: Cyanocobalamin (Vitamin B-12) 1,000 MCG TAB PO SCH (09:20)
[2017-05-25] MEDS: Carvedilol 6.25 MG TAB PO SCH ×2 (09:20→21:10)
[2017-05-25] MEDS: Doxycycline 100 MG CAP PO SCH ×2 (10:19→21:11)
[2017-05-25 10:38] LABS: Hematocrit 36.3 % (42.0-52.0)
[2017-05-25 10:42] LABS: Bite Cells SLIGHT = 2-5 cells (100X) (0-1/hpf); Neutrophil 90 % (42-75); Nucleated RBC 11 % (0); Polychromasia SLIGHT = 2-3 cells (100X) (0-2/hpf); Red Blood Cell (RBC) Count 3.37 mill/uL (4.70-6.10); White Blood Cell (WBC) Count 3.6 thou/uL (4.8-10.8)
--- NOTE | 2017-05-25 13:00 | PDOC.PN ---
- Subjective Encounter Start Date: 05/25/17 Encounter Start Time: 12:59 * pt refused all meds * family in room talking about hospice * no n/v * no f/c - Objective Resuscitation Status: Resuscitation Status DNR:Do Not Resuscitate MAR Reviewed: Yes Vital Signs & Weight: Vital Signs (12 hours) Temp Pulse Resp BP BP Pulse Ox 05/25/17 09:20 89/44 L 05/25/17 09:00 94.9 F L 59 L 20 80/56 L 98 05/25/17 08:00 94.9 F L 59 L 20 98 05/25/17 03:59 99 Weight Admit Weight 148 lb Weight 144 lb 4.8 oz I&O: 05/24/17 05/25/17 05/26/17 06:59 06:59 06:59 Intake Total 320 500 Output Total 150 0 Balance 170 500 Result Diagrams: 05/25/17 09:20 05/23/17 17:53 Additional Labs: Accuchecks 05/25/17 05/25/17 05/25/17 06:14 03:01 01:04 POC Glucose 75 128 H 49 L* 05/25/17 05/24/17 05/24/17 00:34 20:24 18:10 POC Glucose 66 L 75 115 H 05/24/17 16:54 POC Glucose 44 L* Phys Exam - Physical Examination mumbles HEENT: moist MMs Neck: no JVD Respiratory: no rales Cardiovascular: RRR Gastrointestinal: non-tender Musculoskeletal: pulses present Neurological: moves all 4 limbs Skin: normal turgor Dx/Plan (1) Acute on chronic renal failure Code(s): N17.9 - ACUTE KIDNEY FAILURE, UNSPECIFIED; N18.9 - CHRONIC KIDNEY DISEASE, UNSPECIFIED Status: Acute (2) Hypothyroidism Code(s): E03.9 - HYPOTHYROIDISM, UNSPECIFIED Status: Acute (3) PNA (pneumonia) Code(s): J18.9 - PNEUMONIA, UNSPECIFIED ORGANISM Status: Acute (4) H/O sick sinus syndrome Code(s): Z86.79 - PERSONAL HISTORY OF OTHER DISEASES OF THE CIRCULATORY SYSTEM Status: Chronic (5) Nonischemic cardiomyopathy Code(s): I42.8 - OTHER CARDIOMYOPATHIES Status: Chronic Comment: Pt refuses to wear Life vest and did not follow up with cardiology last discharge (6) Acute on chronic systolic heart failure Code(s): I50.23 - ACUTE ON CHRONIC SYSTOLIC (CONGESTIVE) HEART FAILURE Status : Acute (7) UTI (urinary tract infection) Status: Acute Qualifiers: Hematuria presence: without hematuria - Plan * . * No changes in plan of care for now * family talking to hospice - will await decision * continue comfort/palliative care for now *
--- NOTE | 2017-05-25 16:11 | DIS ---
DATE OF ADMISSION: 05/14/2017 DATE OF DISCHARGE: 05/25/2017 DISCHARGE DIAGNOSES: Acute on chronic systolic congestive heart failure with ejection fraction of 1 5%-20%, nonischemic cardiomyopathy, coronary artery disease, dyslipidemia, gastroesophageal reflux disease, status post pacemaker placement, acute renal failure on chronic kid cyndee disease, severe tricuspid regurgitation. DISPOSITION: Home with hospice. CONSULTANTS ON THE CASE: Cardiology and Renal. DISCHARGE MEDICATIONS: Same as home medications and then further per hospice. BRIEF HOSPITAL COURSE: This is an 86-year-old pleasant gentleman who came into hospital with CHF ex acerbation. Please refer to the admitting physician's H\T\P for further details. The patient was t reated and was put on IV Lasix. He improved briefly with this treatment. The patient also started developing chronic kidney disease for which Renal was consulted. They thought it was cardiorenal sy ndrome. The patient steadily declined and became more and more weak this hospital stay. Urine show ed Enterococcus, but was only about 10,000 colony strength. The patient slowly declined this hospit al stay and became more and more weak. The family was consulted and because of the poor ejection fr action, Palliative Care was consulted. We explained to the patient the poor prognosis of the patien t and right now family has agreed for hospice. Arrangements for home with hospice have been made. The patient is going to be discharged to hospice. Total time for this discharge took 35 minutes.
[2017-05-25] MEDS ORDERED: Lorazepam 2 MG/ML VIAL SLOW IVP SCH (17:15)
[2017-05-25] MEDS ORDERED: FLU VACC TS2017-18 (>65YR) 0.5 ML SYRINGE IM ONE (18:00)
[2017-05-25] MEDS: Simvastatin 5 MG TAB PO SCH (21:11)
[2017-05-26] MEDS: Levothyroxine Sodium 25 MCG TAB PO SCH (06:18)
[2017-05-26] MEDS ORDERED: Doxycycline 100 MG CAP PO SCH (09:00)
[2017-05-26 09:17] VITALS: BP 80/51; TEMP 98.1
[2017-05-26] MEDS: Folic Acid 1 MG TAB PO SCH (09:18)
[2017-05-26] MEDS: Cyanocobalamin (Vitamin B-12) 1,000 MCG TAB PO SCH (09:18)
[2017-05-26] MEDS: Carvedilol 6.25 MG TAB PO SCH (09:18)
[2017-05-26] MEDS: Furosemide 40 MG/4 ML VIAL SLOW IVP SCH ×2 (09:18→14:04)
--- NOTE | 2017-05-26 12:23 | PDOC.PN ---
- Subjective Encounter Start Date: 05/26/17 Encounter Start Time: 12:22 Patient seen and examined. No new complaints. No overnight events - Objective Resuscitation Status: Resuscitation Status DNR:Do Not Resuscitate MAR Reviewed: Yes Vital Signs & Weight: Vital Signs (12 hours) Temp Pulse Resp BP Pulse Ox 05/26/17 09:00 98.1 F 60 20 80/51 L 95 05/26/17 03:45 92 L Weight Admit Weight 148 lb Weight 147 lb I&O: 05/25/17 05/26/17 05/27/17 06:59 06:59 06:59 Intake Total 500 0 Output Total 0 0 Balance 500 0 Result Diagrams: 05/25/17 09:20 05/23/17 17:53 Additional Labs: Accuchecks 05/25/17 05/25/17 05/25/17 20:32 17:49 10:46 POC Glucose 113 H 55 L* 44 L* Phys Exam - Physical Examination confused HEENT: moist MMs Neck: no JVD Respiratory: no rales Cardiovascular: RRR Gastrointestinal: soft Musculoskeletal: pulses present Neurological: moves all 4 limbs Dx/Plan (1) Acute on chronic renal failure Code(s): N17.9 - ACUTE KIDNEY FAILURE, UNSPECIFIED; N18.9 - CHRONIC KIDNEY DISEASE, UNSPECIFIED Status: Acute (2) Hypothyroidism Code(s): E03.9 - HYPOTHYROIDISM, UNSPECIFIED Status: Acute (3) PNA (pneumonia) Code(s): J18.9 - PNEUMONIA, UNSPECIFIED ORGANISM Status: Acute (4) H/O sick sinus syndrome Code(s): Z86.79 - PERSONAL HISTORY OF OTHER DISEASES OF THE CIRCULATORY SYSTEM Status: Chronic (5) Nonischemic cardiomyopathy Code(s): I42.8 - OTHER CARDIOMYOPATHIES Status: Chronic Comment: Pt refuses to wear Life vest and did not follow up with cardiology last discharge (6) Acute on chronic systolic heart failure Code(s): I50.23 - ACUTE ON CHRONIC SYSTOLIC (CONGESTIVE) HEART FAILURE Status : Acute (7) UTI (urinary tract infection) Status: Acute Qualifiers: Hematuria presence: without hematuria - Plan * family wants hospice * case mx working with [facility] hospice to place pt
== END 2017-05-26 15:43 | disposition hospice, inpatient (51) | DRG 291 ==
LOC: ERS 12:16 → 2NO 15:29
PROVIDERS: ADMIT Internal Medicine; ATTEND Internal Medicine
PROC: 02HV33Z Insertion of Infusion Device into Superior Vena Cava, Percutaneous Approach (ICD-10-PCS; principal; 2017-05-16)
DX: I13.0 Hypertensive heart and chronic kidney disease with heart failure and stage 1 through stage 4 chronic kidney disease, or unspecified chronic kidney disease (principal); I50.23 Acute on chronic systolic (congestive) heart failure; J18.9 Pneumonia, unspecified organism; N18.4 Chronic kidney disease, stage 4 (severe); E87.5 Hyperkalemia; D69.6 Thrombocytopenia, unspecified; N17.9 Acute kidney failure, unspecified; I42.9 Cardiomyopathy, unspecified; N39.0 Urinary tract infection, site not specified; I08.3 Combined rheumatic disorders of mitral, aortic and tricuspid valves; D64.9 Anemia, unspecified; Z51.5 Encounter for palliative care; Z95.0 Presence of cardiac pacemaker; I25.10 Atherosclerotic heart disease of native coronary artery without angina pectoris; B95.2 Enterococcus as the cause of diseases classified elsewhere; Z91.14 Patient's other noncompliance with medication regimen; E03.9 Hypothyroidism, unspecified; E78.5 Hyperlipidemia, unspecified; K21.9 Gastro-esophageal reflux disease without esophagitis; I37.1 Nonrheumatic pulmonary valve insufficiency; M19.90 Unspecified osteoarthritis, unspecified site; Z66 Do not resuscitate
CPT/HCPCS: 36415; 36416; 36569; 71010; 76770; 80048; 80053; 80069; 81001; 81015; 82533; 82553; 82607; 82746; 83735; 83880; 84100; 84439; 84443; 84481; 84484; 84550; 85025; 87040; 87086; 93005; 93306; 93798; 94640; 96374; A4216; C1751; G8978-GP-CJ; G8979-GP-CI; G8987-GO-CJ; G8988-GO-CI; J0696; J1200; J1250; J1644; J1650; J1940; J1956; J2060; J2405; J3475; J7050; J7611; J7620; P9047

== ENCOUNTER 2017-05-26 15:44 | Inpatient (IN) | payer OTHER ==
--- OUTSIDE RECORDS SUMMARY | 2017-05-26 15:49 | XMS | Clinical Summary ---
:1930 Author Organization [facility] [employer] Address [address] [place] [address] Phone Care Team Providers Name Role Phone , Primary Care Provider Unavailable Allergies Not on File Current Medications Not on file Active Problems Not on file Social History Tobacco Use Types Packs/Day Years Used Date Never Assessed Sex Assigned at Date Recorded Not on file Last Filed Vital Signs Not on file Plan of Treatment Not on file Results Not on filefrom Last 3 Months
[2017-05-26 16:03] VITALS: BMI 21.8
[2017-05-26 17:40] VITALS: BP 80/51; TEMP 98.1
--- NOTE | 2017-06-15 10:39 | SS ---
DATE OF ADMISSION TO HOSPICE: 05/26/2017 CHIEF COMPLAINT: Inpatient hospice care. HISTORY OF PRESENT ILLNESS: The patient is an 86-year-old male who was admitted to [facility] on 05/14/2017 with acute on chronic systolic congestive heart gretchen lure due to nonischemic cardiomyopathy and renal failure, acute on chronic. He was evaluated and tr eated at [facility]. Nephrology was consulted. 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 The patient declined significantly during his hospital stay, he also had a urine culture showed Enterococcus less than 10,000 colony. The patient was so weak, after consul ting with the patient and the family because of his poor ejection fraction, palliative care was cons ulted, due to an extremely poor prognosis and his renal failure requiring likely hemodialysis, it wa s decided that the patient would not forego any further invasive treatments, evaluations and care an d go under hospice care. This patient was admitted to hospice care on the evening of 05/26/2017. D ue to his very poor declining status he was made an inpatient hospice with the expectation that eliza ent would last less than 48 hours. PAST MEDICAL HISTORY: 1. Chronic systolic heart failure with ejection fraction of 15-20% with moderate aortic and tricusp id regurgitation, and severe mitral regurgitation. 2. Chronic renal disease stage 4. 3. Hyperlipidemia. 4. Hypertension. 5. Gastroesophageal reflux disease. 6. History of cardiac sick sinus syndrome. 7. History of degenerative joint disease. 8. History of poor medication compliance. PAST SURGICAL HISTORY: Included an AICD pacemaker placement, cardiac catheterization and status pos t cholecystectomy. SOCIAL HISTORY: The patient had an overall decline in his status. He had been living at home with his sister prior to this acute admission. He had been ambulating with a cane, but had been getting progressively weaker over the last few weeks. Denies any significant tobacco, alcohol or social malena g use. REVIEW OF SYSTEMS: Review of systems at the time of admission to hospice, the patient was poorly re sponsive and mainly obtunded. Per family, the patient has had some cough which has come and gone, h ad some increased edema of the lower extremities prior to admission, which was treated with Lasix. The patient had had no fevers or chills, no night sweats. Appetite has been progressively getting p oor. He has had some loose stools, alternating with constipation. The patient had no recent histor y of depression or mental illness problems. PHYSICAL EXAMINATION: GENERAL: Obtunded male, nonresponsive to voiceful stimuli. VITAL SIGNS: Blood pressure was 102/62, respiratory rate 24, pulse was in the 80s. HEENT: Oropharynx, mucous membranes are slightly dry. Poor dentition was noted. NECK: Neck was supple. CHEST: Chest had diffuse rhonchi bilaterally. CARDIOVASCULAR: Heart sounds were distant and regular with a systolic ejection murmur noted as well as diastolic murmur. ABDOMEN: Abdomen showed a soft abdomen. Bowel sounds are hypoactive. EXTREMITIES: Showed cyanosis of the extremities with some purplish pallor and cold extremities were noted. BRIEF SUMMARY OF HOSPITAL COURSE: The patient was admitted to hospice unit. All his routine medica tions were held. He was placed on morphine IV or sublingual as needed for pain, plus atropine for a ny significant secretions. Benzodiazepines IV to help with any anxiety and restlessness. The patie nt's family was by his side during his last bit of time in the hospital. All questions were answere d throughout his care. The patient appeared to be fairly comfortable and it was noted by staff that he at 1952 which is 7:50 p.m. on 05/26/2017. CAUSE OF : Likely asystole related to cardiac arrhythmia with his history of significant cardi orenal syndrome and acute on chronic renal failure. The family was comforted by hospice staff and all questions were answered. The body was released to the home as per family's wishes.
== END 2017-05-26 21:10 | disposition expired | DRG 951 ==
LOC: 2NO 15:44
PROVIDERS: ADMIT Internal Medicine; ATTEND Internal Medicine
DX: Z51.5 Encounter for palliative care (principal); I50.23 Acute on chronic systolic (congestive) heart failure; J18.9 Pneumonia, unspecified organism; N18.4 Chronic kidney disease, stage 4 (severe); I42.9 Cardiomyopathy, unspecified; D69.6 Thrombocytopenia, unspecified; N17.9 Acute kidney failure, unspecified; I13.0 Hypertensive heart and chronic kidney disease with heart failure and stage 1 through stage 4 chronic kidney disease, or unspecified chronic kidney disease; I08.3 Combined rheumatic disorders of mitral, aortic and tricuspid valves; E78.5 Hyperlipidemia, unspecified; K21.9 Gastro-esophageal reflux disease without esophagitis; D72.819 Decreased white blood cell count, unspecified; D75.89 Other specified diseases of blood and blood-forming organs; M19.90 Unspecified osteoarthritis, unspecified site; Z91.14 Patient's other noncompliance with medication regimen; Z95.0 Presence of cardiac pacemaker; I46.9 Cardiac arrest, cause unspecified; I49.9 Cardiac arrhythmia, unspecified; I49.5 Sick sinus syndrome